=== PATIENT | male | born 1940 | race Caucasian/White ===

== ENCOUNTER 2016-11-12 20:27 | Emergency (ER) | payer MEDICARE, BC ==
[2016-11-12] MEDS ORDERED: Sodium Chloride 0.9% 10 ML Syringe FLUSH PRN (21:09)
[2016-11-12] MEDS ORDERED: Sodium Chloride 0.9% 1,000 ML IV SCH (22:15)
[2016-11-12] MEDS ORDERED: Iopamidol 755 Mg/ML 100 ML Bottle IV STA (22:24)
[2016-11-12] MEDS ORDERED: Sodium Chloride 0.9% 100 ML IV STA (22:24)
--- NOTE | 2016-11-12 22:25 | EDM.PDOC ---
ED HPI GENERAL MEDICAL PROBLEM - General Chief Complaint: Syncope Stated Complaint: MED[facility] Time Seen by Provider: 11/12/16 20:52 Source of Information: Reports: Patient, EMS, RN Notes Reviewed History Limitations: Reports: No Limitations - History of Present Illness INITIAL COMMENTS - FREE TEXT/NARRATIVE: EMS arrival, received ondansetron IV prior to arrival His of 57 years is here with him. 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 He came to on the floor, bystanders had M down to the floor easily, syncope recurred in the sitting position, he did not fall. He vomited after he came to several times on the floor in the ambience and on arrival here. Nausea is still present but mild. No abdominal pain, no chest pain, not short of breath. No leg pain or swelling recently No fever or infection recently. Recently diagnosed COPD started on steroid inhaler which he had to discontinue because he gave him such as sore throat. He has an emergency inhaler but rarely uses it, his reading ability has improved over the past few years and he can walk further than ever. He smoked from age 14 to age 62 about 9 years ago had a mini stroke presenting with numbness in the arm. He underwent a left carotid endarterectomy about 8 years ago. No history of heart attack or ischemia. he has wonder if it could be the influenza vaccination the receive this morning. In emergency continues to have some lightheadedness nausea when he was taken for x-ray but that is improved. No history of syncope previously. Long-standing history of PVCs. 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 Denies Pain Score (Numeric/FACES): 0 - Related Data Allergies Allergy/AdvReac Type Severity Reaction Status Date / Time codeine AdvReac Nausea Verified 11/12/16 20:31 Home Meds: Home Meds *Saw Flo 540 Mg 540 mg PO DAILY 09/04/13 [History] Aspirin [Adult Low Dose Aspirin EC] 81 mg PO DAILY 09/04/13 [History] Benazepril [Lotensin] 5 mg PO DAILY 09/04/13 [History] Gluc 2KCl/Chondr/Alta Hy/Hy Ac [Glucosamine & Chondroitin Cap] 1 each PO BID [History] Multivitamin [Multi Vitamin Daily] 1 each PO DAILY 09/04/13 [History] Simvastatin [Zocor] 40 mg PO BEDTIME 09/04/13 [History] amLODIPine Besylate [Amlodipine Besylate] 5 mg PO DAILY 09/04/13 [History] *Avastin Inj 1 dose IM ASDIRECTED 11/12/16 [History] Past Medical History HEENT History: Reports: Impaired Vision, Macular Degeneration Cardiovascular History: Reports: High Cholesterol, Hypertension Respiratory History: Reports: COPD Genitourinary History: Reports: Renal Calculus Musculoskeletal History: Reports: Fracture Other Musculoskeletal History: wrist arms leg fx Neurological History: Reports: CVA - Infectious Disease History Infectious Disease History: Reports: C-Difficile, Measles - Past Surgical History Other HEENT Surgeries/Procedures: sinus surgery Other Cardiovascular Surgeries/Procedures: stent for abdominal anurysym GI Surgical History: Reports: Colonoscopy Other GI Surgeries/Procedures: abdomenal anurysm Social & Family History - Tobacco Use Smoking Status *Q: Former Smoker Years of Tobacco use: 48 Packs/Tins Daily: 1 Used Tobacco, but Quit: Yes Month Tobacco Last Used: Unknown Second Hand Smoke Exposure: No - Caffeine Use Caffeine Use: Reports: Coffee, Soda - Alcohol Use Days Per Week of Alcohol Use: 7 Number of Drinks Per Day: 2 Total Drinks Per Week: 14 Date of Last Drink: 11/11/16 Time of Last Drink: 20:00 - Recreational Drug Use Recreational Drug Use: No ED ROS GENERAL - Review of Systems Review Of Systems: See Below Constitutional: Denies: Fever, Chills, Diaphoresis, Decreased Appetite, Weight Loss HEENT: Reports: No Symptoms Respiratory: Reports: No Symptoms Cardiovascular: Reports: Blood Pressure Problem (controlled hypertension), Syncope. Denies: Chest Pain, Dyspnea on Exertion, Palpitations (PVCs but not symptomatic) Endocrine: Reports: No Symptoms GI/Abdominal: Reports: No Symptoms : Reports: No Symptoms Musculoskeletal: Reports: No Symptoms Skin: Reports: No Symptoms Neurological: Reports: Dizziness (by which he means lightheadedness, not vertigo ), Syncope. Denies: Confusion, Headache, Paresthesia, Pre-Existing Deficit, Change in Speech, Gait Disturbance Psychiatric: Reports: No Symptoms Hematologic/Lymphatic: Reports: No Symptoms Immunologic: Reports: No Symptoms - Physical Exam Exam: See Below Exam Limited By: No Limitations General Appearance: Alert, No Apparent Distress, Other (blood pressure is elevated otherwise vital signs normal, no difficulty speaking or breathing) Eye Exam: Bilateral Eye: EOMI, Normal Inspection Ears: Normal External Exam Nose: Normal Inspection, Normal Mucosa Throat/Mouth: Normal Inspection, Normal Oropharynx Head Exam: Atraumatic, Normocephalic Neck: Normal Inspection, Supple, Non-Tender, Other (no carotid bruit) Respiratory/Chest: No Respiratory Distress, No Accessory Muscle Use, Rales ( both lung lala at the back) Cardiovascular: Normal Peripheral Pulses, Regular Rate, Rhythm, Extra Beats ( frequent PVCs) GI/Abdominal: Normal Bowel Sounds, Soft, Non-Tender (Male) Exam: No Hernia Neuro Exam (Abbreviated): Alert, Oriented, Normal Cognition, Normal Reflexes, No Motor/Sensory Deficits Extremities: Normal Inspection, Non-Tender, Normal Capillary Refill Psychiatric: Normal Affect, Normal Mood Skin Exam: Warm, Dry, Intact, Normal Color, No Rash Course - Vital Signs Last Recorded V/S: Last Vital Signs Temp 35.9 C 11/12/16 20:44 Pulse 90 11/12/16 22:28 Resp 16 11/12/16 20:44 BP 155/88 H 11/12/16 22:28 Pulse Ox 92 L 11/12/16 22:28 - Orders/Labs/Meds Orders: Active Orders 24 hr Category Date Time Status EKG Documentation Completion [RC] ASDIRECTED Care 11/12/16 21:09 Active EKG Documentation Completion [RC] ASDIRECTED Care 11/13/16 00:11 Active Peripheral IV Care [RC] . DIRECTED Care 11/12/16 21:09 Active Ang Chest [CT] Stat Exams 11/12/16 22:18 Taken Chest 2V [CR] Stat Exams 11/12/16 21:09 Taken Sodium Chloride 0.9% [Normal Saline] 1,000 ml Med 11/12/16 22:15 Active IV ASDIRECTED Sodium Chloride 0.9% [Saline Flush] Med 11/12/16 21:09 Active 10 ml FLUSH ASDIRECTED PRN Peripheral IV Insertion Adult [OM.PC] Routine Oth 11/12/16 21:09 Ordered EKG 12 Lead [EK] Routine Ther 11/12/16 21:09 Ordered EKG 12 Lead [EK] Routine Ther 11/13/16 00:11 Ordered Medication Orders Sodium Chloride (Normal Saline) 1,000 mls @ 250 mls/hr IV ASDIRECTED GWEN Last Admin: 11/12/16 23:11 Dose: 250 mls/hr Sodium Chloride (Saline Flush) 10 ml FLUSH ASDIRECTED PRN PRN Reason: Keep Vein Open Labs: Laboratory Tests 11/12/16 11/12/16 11/12/16 Range/Units 21:22 21:22 21:22 WBC 12.9 H (4.5-11.0) K/uL RBC 5.24 (4.30-5.90) M/uL Hgb 15.6 H (12.0-15.0) g/dL Hct 46.5 (40.0-54.0) % MCV 89 (80-98) fL MCH 30 (27-31) pg MCHC 34 (32-36) % Plt Count 187 (150-400) K/uL D-Dimer, Quantitative 4270 H (0.0-400.0) ng/mL Sodium 143 (140-148) mmol/L Potassium 3.5 L (3.6-5.2) mmol/L Chloride 106 (100-108) mmol/L Carbon Dioxide 26 (21-32) mmol/L Anion Gap 14.5 H (5.0-14.0) mmol/L BUN 19 H (7-18) mg/dL Creatinine 1.3 (0.8-1.3) mg/dL Est Cr Clr Drug Dosing 53.06 mL/min Estimated GFR (MDRD) 54 L (>60) Glucose 129 H (74-106) mg/dL Calcium 8.7 (8.5-10.1) mg/dL Troponin I 0.054 (0.000-0.056) ng/mL Meds: Medications Generic Name Dose Route Start Last Admin Trade Name Freq PRN Reason Stop Dose Admin Sodium Chloride 1,000 mls @ 250 mls/hr 11/12/16 22:15 11/12/16 23:11 Normal Saline IV 250 mls/hr ASDIRECTED GWEN Administration Sodium Chloride 10 ml 11/12/16 21:09 Saline Flush FLUSH ASDIRECTED PRN Keep Vein Open Discontinued Medications Generic Name Dose Route Start Last Admin Trade Name Freq PRN Reason Stop Dose Admin Sodium Chloride 100 mls @ 4 mls/sec 11/12/16 22:24 11/12/16 22:34 Normal Saline IV 11/12/16 22:25 4 mls/sec ASDIRECTED STA Administration Iopamidol 100 ml 11/12/16 22:24 11/12/16 22:34 [id number] (76%) IV 11/12/16 22:25 100 ml . DIRECTED STA Administration - Re-Assessments/Exams Free Text/Narrative Re-Assessment/Exam: 11/12/16 22:25 76-year-old male with syncope from a sitting position followed by several episodes of emesis, still feels lightheaded and has minimal nausea. EKG shows sinus rhythm rate 95 with frequent PVCs and some nonspecific ST changes, not suggestive of ischemia. Chest x-ray by my interpretation shows some scarring of the lung bases, probably reflective of COPD, no acute inflammation effusion or infiltrate WBC 12.9, d-dimer 4270 glucose 129 potassium 3.5,, no other significant abnormality In view of ongoing lightheadedness his nonspecific EKG changes and his syncope while sitting, recommended CT pulmonary angiogram 11/13/16 00:17 CT chest negative for pulmonary angiogram or any other acute disease Repeat EKG shows borderline prolonged QT, multiple PVCs, diffuse ST depression, minimal, borderline or abnormal EKG but no acute signs of ischemia Follow-up with primary provider or clinic in one week recommended Return to emergency if symptoms worsening Departure - Departure Time of Disposition: 00:17 Disposition: Home, Self-Care 01 Condition: Good Clinical Impression: Syncope Qualifiers: Syncope type: unspecified Qualified Code(s): R55 - Syncope and collapse - Discharge Information Instructions: Syncope, [id number] Referrals: PCP,None [Primary Care Provider] - Forms: ED Department Discharge Additional Instructions: please make an appointment with your physician/clinic for 1 week from now to recheck your blood pressure Return to emergency if you have recurrent episodes of passing out, developed chest pain or shortness of breath or high fever or other new symptoms - My Orders Last 24 Hours: My Active Orders 11/12/16 21:09 EKG Documentation Completion [RC] ASDIRECTED Peripheral IV Care [RC] . DIRECTED Chest 2V [CR] Stat Sodium Chloride 0.9% [Saline Flush] 10 ml FLUSH ASDIRECTED PRN Peripheral IV Insertion Adult [OM.PC] Routine EKG 12 Lead [EK] Routine 11/12/16 22:15 Sodium Chloride 0.9% [Normal Saline] 1,000 ml IV ASDIRECTED 11/12/16 22:18 Ang Chest [CT] Stat 11/13/16 00:11 EKG Documentation Completion [RC] ASDIRECTED EKG 12 Lead [EK] Routine - Assessment/Plan Last 24 Hours: My Active Orders 11/12/16 21:09 EKG Documentation Completion [RC] ASDIRECTED Peripheral IV Care [RC] . DIRECTED Chest 2V [CR] Stat Sodium Chloride 0.9% [Saline Flush] 10 ml FLUSH ASDIRECTED PRN Peripheral IV Insertion Adult [OM.PC] Routine EKG 12 Lead [EK] Routine 11/12/16 22:15 Sodium Chloride 0.9% [Normal Saline] 1,000 ml IV ASDIRECTED 11/12/16 22:18 Ang Chest [CT] Stat 11/13/16 00:11 EKG Documentation Completion [RC] ASDIRECTED EKG 12 Lead [EK] Routine
[2016-11-13 00:30] VITALS: BP 167/92
--- NOTE | 2016-11-13 08:57 | CR ---
Chest 2V HISTORY: syncope; lightheaded COMPARISON: 09/08/2008 FINDINGS: Lungs appear clear and normally aerated. There is minimal linear atelectasis or scarring left lung ba se. Cardiomediastinal silhouette is within normal limits. No vascular redistribution or pleural fluid can be seen. Bony structures and soft tissues are unremarkable. IMPRESSION: No acute chest abnormality or significant interval change is identified. Minimal linear scarring is n oted left lung base.
== END 2016-11-13 00:31 | disposition home or self-care (01) ==
LOC: JP.ED 20:27
DX: R55 Syncope and collapse (principal); I10 Essential (primary) hypertension; E78.00 Pure hypercholesterolemia, unspecified; J44.9 Chronic obstructive pulmonary disease, unspecified; Z87.442 Personal history of urinary calculi; Z86.73 Personal history of transient ischemic attack (TIA), and cerebral infarction without residual deficits; Z87.891 Personal history of nicotine dependence; Z98.890 Other specified postprocedural states; Z79.82 Long term (current) use of aspirin; Z79.899 Other long term (current) drug therapy; Z88.5 Allergy status to narcotic agent
CPT/HCPCS: 36415; 71020; 71275; 80048; 84484; 85027; 85379; 93005; 93010; 96360; 99284; J7030; J7040; Q9967; 99283

== ENCOUNTER 2017-02-19 14:07 | Emergency (ER) | payer MEDICARE, BC ==
[2017-02-19] MEDS ORDERED: Sodium Chloride 0.9% 10 ML Syringe FLUSH PRN (14:28)
[2017-02-19] MEDS ORDERED: Aspirin 81 MG Tab.Chew PO ONE (14:32)
--- NOTE | 2017-02-19 14:40 | EDM.PDOC ---
ED HPI GENERAL MEDICAL PROBLEM - General Chief Complaint: Chest Pain Stated Complaint: CHEST PAIN Time Seen by Provider: 02/19/17 14:25 Source of Information: Reports: Patient, Family History Limitations: Reports: No Limitations - History of Present Illness INITIAL COMMENTS - FREE TEXT/NARRATIVE: 76-year-old male with known coronary artery disease, had an angiogram and stent placement on 31 January the continues to have intermittent dyspnea and chest discomfort so is scheduled for a repeat angiogram on Friday, 5 days from now. He still has intermittent shortness of breath and chest pain responding to nitroglycerin, but this morning the pain was more intense, was at rest, and more persistent so he came into the emergency room. On arrival he is actually feeling better. The pain is substernal and does not radiate but is accompanied by shortness of breath. No nausea or vomiting, no abdominal pain, no significant diaphoresis. He thinks the nitroglycerin is helping. He took his Plavix as scheduled this morning, he usually takes aspirin at night. Duration: Hour(s): (Pain started 4-5 hours ago) Location: Reports: Chest Quality: Reports: Ache, Pressure Severity: Moderate Improves with: Reports: Medication (Nitroglycerin didn't seem to help) Anterior Chest Pain Score (Numeric/FACES): 3 - Related Data Allergies Allergy/AdvReac Type Severity Reaction Status Date / Time codeine AdvReac Nausea Verified 02/19/17 14:15 Home Meds: Home Meds *Paresh Rossi 540 Mg 540 mg PO DAILY 09/04/13 [History] Aspirin [Adult Low Dose Aspirin EC] 81 mg PO DAILY 09/04/13 [History] Benazepril [Lotensin] 5 mg PO DAILY 09/04/13 [History] Gluc 2KCl/Chondr/[place] Hy/Hy Ac [Glucosamine & Chondroitin Cap] 1 each PO DAILY 09/04/13 [History] Multivitamin [Multi Vitamin Daily] 1 each PO DAILY 09/04/13 [History] amLODIPine Besylate [Amlodipine Besylate] 5 mg PO DAILY 09/04/13 [History] *Avastin Inj 1 dose IM ASDIRECTED 11/12/16 [History] L.acidoph,Paracasei, B.lactis [Probiotic] 1 cap PO DAILY 12/10/16 [History] Carvedilol [Coreg] 6.25 mg PO BID 02/19/17 [History] Clopidogrel [Plavix] 75 mg PO DAILY 02/19/17 [History] atorvaSTATin [Lipitor] 80 mg PO BEDTIME 02/19/17 [History] Past Medical History HEENT History: Reports: Impaired Vision, Macular Degeneration Cardiovascular History: Reports: High Cholesterol, Hypertension Respiratory History: Reports: COPD Genitourinary History: Reports: Renal Calculus Musculoskeletal History: Reports: Fracture Other Musculoskeletal History: wrist arms leg fx Neurological History: Reports: CVA - Infectious Disease History Infectious Disease History: Reports: C-Difficile, Measles - Past Surgical History Other HEENT Surgeries/Procedures: sinus surgery Other Cardiovascular Surgeries/Procedures: stent for abdominal anurysym GI Surgical History: Reports: Colonoscopy Other GI Surgeries/Procedures: abdomenal anurysm Social & Family History - Tobacco Use Smoking Status *Q: Former Smoker Years of Tobacco use: 48 Packs/Tins Daily: 1 Used Tobacco, but Quit: Yes Month Tobacco Last Used: Unknown Second Hand Smoke Exposure: No - Caffeine Use Caffeine Use: Reports: Coffee, Soda - Alcohol Use Days Per Week of Alcohol Use: 7 Number of Drinks Per Day: 2 Total Drinks Per Week: 14 - Recreational Drug Use Recreational Drug Use: No ED ROS GENERAL - Review of Systems Review Of Systems: See Below Constitutional: Denies: Fever, Chills Respiratory: Reports: Shortness of Breath. Denies: Cough Cardiovascular: Reports: Chest Pain, Palpitations GI/Abdominal: Denies: Abdominal Pain, Nausea, Vomiting : Reports: No Symptoms Neurological: Denies: Headache ED EXAM, GENERAL - Physical Exam Exam: See Below Exam Limited By: No Limitations General Appearance: Alert, No Apparent Distress Eye Exam: Bilateral Eye: Normal Inspection Respiratory/Chest: No Respiratory Distress Cardiovascular: Regular Rate, Rhythm, Bradycardia, Extra Beats GI/Abdominal: Soft, Non-Tender Extremities: Pedal Edema (Minimal if any bilateral pedal edema) Neurological: Alert, Oriented Psychiatric: Normal Affect, Normal Mood Skin Exam: Warm, Dry EKG INTERPRETATION Rhythm: NSR Rate (Beats/Min): 58 ST-T: Other (Slight depression but stable from previous EKGs) EKG Interpretation Comments: Patient has a sinus bradycardia with frequent PVCs, occasionally paired. No significant ST depression or elevation Course - Vital Signs Last Recorded V/S: Last Vital Signs Temp 97.2 F 02/19/17 14:20 Pulse 64 02/19/17 15:30 Resp 16 02/19/17 15:30 BP 122/77 02/19/17 15:30 Pulse Ox 97 02/19/17 15:30 - Orders/Labs/Meds Labs: Laboratory Tests 02/19/17 02/19/17 Range/Units 14:40 14:40 WBC 8.3 (4.5-11.0) K/uL RBC 4.96 (4.30-5.90) M/uL Hgb 15.1 H (12.0-15.0) g/dL Hct 45.2 (40.0-54.0) % MCV 91 (80-98) fL MCH 30 (27-31) pg MCHC 33 (32-36) % Plt Count 164 (150-400) K/uL Neut % (Auto) 72 H (36-66) % Lymph % (Auto) 14 L (24-44) % [place] % (Auto) 10 H (2-6) % Eos % (Auto) 4 (2-4) % Baso % (Auto) 0 (0-1) % Sodium 144 (140-148) mmol/L Potassium 4.2 (3.6-5.2) mmol/L Chloride 107 (100-108) mmol/L Carbon Dioxide 30 (21-32) mmol/L Anion Gap 6.7 (5.0-14.0) mmol/L BUN 19 H (7-18) mg/dL Creatinine 1.4 H (0.8-1.3) mg/dL Est Cr Clr Drug Dosing 47.81 mL/min Estimated GFR (MDRD) 49 L (>60) Glucose 143 H (74-106) mg/dL Calcium 9.1 (8.5-10.1) mg/dL Troponin I 0.025 (0.000-0.056) ng/mL Meds: Medications Discontinued Medications Generic Name Dose Route Start Last Admin Trade Name Freq PRN Reason Stop Dose Admin Aspirin 324 mg 02/19/17 14:32 02/19/17 14:36 Aspirin PO 02/19/17 14:33 324 mg ONETIME ONE Administration Sodium Chloride 10 ml 02/19/17 14:28 02/19/17 14:43 Saline Flush FLUSH 10 ml ASDIRECTED PRN Administration Keep Vein Open - Re-Assessments/Exams Free Text/Narrative Re-Assessment/Exam: 02/19/17 14:39 An EKG showed no acute findings and was very similar to previous EKGs except the rate was slower, possibly due to beta kaleb therapy. Patient was given full dose chewable aspirin, CBC, BMP and troponin were obtained. 02/19/17 15:41 Troponin was negative, CBC and BMP were reassuring. I discussed his case with cardiology up in [place], his recent angiogram was reviewed and they did not feel there was any urgency to transport him up now unless his symptoms worsen. This was relayed to the patient and he will plan on keeping his appointment on Friday, or returning to [place] sooner if symptoms recur and are persistent or unresponsive to nitroglycerin. Departure - Departure Time of Disposition: 15:52 Disposition: Home, Self-Care 01 Condition: Good Clinical Impression: Atypical chest pain Coronary artery disease Qualifiers: Coronary Disease-Associated Artery/Lesion type: tang[place]q artery [place] vs. transplanted heart: tangir[place]q heart Associated angina: with unspecified angina Qualified Code(s): I25.119 - Atherosclerotic heart disease of tangirnaq coronary artery with unspecified angina pectoris - Discharge Information Instructions: Angina Pectoris, [id number] Referrals: Shayne Wheatley MD [Primary Care Provider] - Forms: ED Department Discharge Care Plan Goals: Continue with nitroglycerin as needed for any breakthrough chest pain, and consider going to [place] if symptoms are persistent or worsening despite treatment. Otherwise keep your appointment on Friday as scheduled.
[2017-02-19 15:48] VITALS: BP 122/77
== END 2017-02-19 15:52 | disposition home or self-care (01) ==
LOC: JP.ED 14:07
DX: I25.119 Atherosclerotic heart disease of native coronary artery with unspecified angina pectoris (principal); I10 Essential (primary) hypertension; E78.00 Pure hypercholesterolemia, unspecified; J44.9 Chronic obstructive pulmonary disease, unspecified; Z87.891 Personal history of nicotine dependence; Z79.02 Long term (current) use of antithrombotics/antiplatelets; Z79.82 Long term (current) use of aspirin; Z79.899 Other long term (current) drug therapy; Z88.5 Allergy status to narcotic agent
CPT/HCPCS: 36415; 80048; 84484; 85025; 93005; 99285; A9270; J7050; 93010

== ENCOUNTER 2017-04-08 09:24 | Emergency (ER) | payer MEDICARE, BC ==
[2017-04-08] MEDS ORDERED: Lactated Ringers 1,000 ML IV ONE (10:21)
[2017-04-08] MEDS ORDERED: Sodium Chloride 0.9% 10 ML Syringe FLUSH PRN (10:21)
--- NOTE | 2017-04-08 10:23 | EDM.PDOC ---
ED HPI GENERAL MEDICAL PROBLEM - General Chief Complaint: Gastrointestinal Problem Stated Complaint: BLACK STOOLS Time Seen by Provider: 04/08/17 10:05 Source of Information: Reports: Patient, Family, Old Records, RN Notes Reviewed History Limitations: Reports: No Limitations - History of Present Illness INITIAL COMMENTS - FREE TEXT/NARRATIVE: 77-year-old gentleman presents to the emergency department today complaint of black tarry stools, he states he's had 3 black tarry stools starting this morning prior to that he is had 2 weeks of diarrhea mostly brown half water half formed stool. Denies any shortness of breath chest pain nausea vomiting does feel weak, does have a history of AAA repair as well as coronary artery disease and multiple PVCs - Related Data Allergies Allergy/AdvReac Type Severity Reaction Status Date / Time codeine AdvReac Nausea Verified 02/19/17 14:15 Home Meds: Home Meds *Saw [place] 540 Mg 540 mg PO DAILY 09/04/13 [History] Aspirin [Adult Low Dose Aspirin EC] 81 mg PO DAILY 09/04/13 [History] Benazepril [Lotensin] 5 mg PO DAILY 09/04/13 [History] Gluc 2KCl/Chondr/Alta Hy/Hy Ac [Glucosamine & Chondroitin Cap] 1 each PO DAILY 09/04/13 [History] Multivitamin [Multi Vitamin Daily] 1 each PO DAILY 09/04/13 [History] amLODIPine Besylate [Amlodipine Besylate] 5 mg PO DAILY 09/04/13 [History] *Avastin Inj 1 dose IM ASDIRECTED 11/12/16 [History] L.acidoph,Paracasei, B.lactis [Probiotic] 1 cap PO DAILY 12/10/16 [History] Carvedilol [Coreg] 12.5 mg PO BID 02/19/17 [History] Clopidogrel [Plavix] 75 mg PO DAILY 02/19/17 [History] atorvaSTATin [Lipitor] 80 mg PO BEDTIME 02/19/17 [History] Past Medical History HEENT History: Reports: Impaired Vision, Macular Degeneration Cardiovascular History: Reports: Afib, Aneurysm, CAD, High Cholesterol, Hypertension Respiratory History: Reports: COPD Gastrointestinal History: Reports: Chronic Diarrhea Genitourinary History: Reports: Renal Calculus Musculoskeletal History: Reports: Fracture Other Musculoskeletal History: wrist arms leg fx Neurological History: Reports: CVA - Infectious Disease History Infectious Disease History: Reports: C-Difficile, Measles - Past Surgical History Other HEENT Surgeries/Procedures: sinus surgery Cardiovascular Surgical History: Reports: Coronary Artery Stent Other Cardiovascular Surgeries/Procedures: stent for abdominal anurysym GI Surgical History: Reports: Colonoscopy, Hernia Repair/Other Other GI Surgeries/Procedures: abdomenal anurysm Social & Family History - Tobacco Use Smoking Status *Q: Former Smoker Years of Tobacco use: 48 Packs/Tins Daily: 1 Used Tobacco, but Quit: Yes Month Tobacco Last Used: 2002 Second Hand Smoke Exposure: No - Caffeine Use Caffeine Use: Reports: None - Alcohol Use Days Per Week of Alcohol Use: 7 Number of Drinks Per Day: 2 Total Drinks Per Week: 14 - Recreational Drug Use Recreational Drug Use: No ED ROS GENERAL - Review of Systems Review Of Systems: See Below Constitutional: Reports: Weakness HEENT: Reports: No Symptoms Respiratory: Reports: No Symptoms Cardiovascular: Reports: No Symptoms GI/Abdominal: Reports: Black Stool, Diarrhea, Flatus. Denies: Nausea, Vomiting : Reports: No Symptoms Musculoskeletal: Reports: No Symptoms Skin: Reports: No Symptoms Neurological: Reports: No Symptoms ED EXAM, GI/ABD - Physical Exam Exam: See Below Text/Narrative:: General: Male, not in any distress, alert and oriented x3 HEENT: head is atraumatic normocephalic, eyes pupils equal round reactive to light, sclera clear no conjunctivitis appreciated. Ears tympanic membranes clear and gibbons landmarks and light reflex are present bilaterally canals are clear. Nose no septal deviation, nares are clear, no blood present. Mouth mucosa is moist and pink no erythema or exudate noted in soft palate, tongue is midline uvula is midline, dentition is intact. Neck: Supple no thyromegaly no tracheal deviation. Nodes: Cervical nodes subclavicular nodes nontender no palpable lymphadenopathy noted. Lungs: clear to auscultation bilaterally with symmetrical respirations, no adventitious noise appreciated. CV: Regular rate and rhythm S1 and S2 appreciated no murmurs rubs or gallops noted. Abdomen: Soft, nontender, no palpable masses or organomegaly appreciated, no distention no guarding bowel sounds are present, rectal exam reveals good sphincter tone no masses no fissures noted there is a small hemorrhoid approximately 6 o'clock position occult stool was obtained. Neuro: Cranial nerves II through XII grossly intact Skin: Warm and dry, intact Extremities: No lower extremity edema appreciated, Course - Vital Signs Last Recorded V/S: Last Vital Signs Temp 96.3 F 04/08/17 09:33 Pulse 47 L 04/08/17 09:33 Resp 16 04/08/17 09:33 BP 85/63 L 04/08/17 09:33 Pulse Ox 96 04/08/17 09:33 - Orders/Labs/Meds Orders: Active Orders 24 hr Category Date Time Status Peripheral IV Care [RC] . DIRECTED Care 04/08/17 10:21 Active Lactated Ringers [Ringers, Lactated] 1,000 ml Med 04/08/17 10:21 Active IV BOLUS Sodium Chloride 0.9% [Saline Flush] Med 04/08/17 10:21 Active 10 ml FLUSH ASDIRECTED PRN Peripheral IV Insertion Adult [OM.PC] Urgent Oth 04/08/17 10:20 Ordered Medication Orders Lactated Ringer's (Ringers, Lactated) 1,000 mls @ 500 mls/hr IV BOLUS ONE Stop: 04/08/17 12:20 Last Admin: 04/08/17 10:40 Dose: 500 mls/hr Sodium Chloride (Saline Flush) 10 ml FLUSH ASDIRECTED PRN PRN Reason: Keep Vein Open Last Admin: 04/08/17 10:49 Dose: 10 ml Labs: Laboratory Tests 04/08/17 04/08/17 Range/Units 10:31 10:31 WBC 9.2 (4.5-11.0) K/uL RBC 4.57 (4.30-5.90) M/uL Hgb 13.7 (12.0-15.0) g/dL Hct 41.9 (40.0-54.0) % MCV 92 (80-98) fL MCH 30 (27-31) pg MCHC 33 (32-36) % Plt Count 164 (150-400) K/uL Neut % (Auto) 82 H (36-66) % Lymph % (Auto) 9 L (24-44) % [place] % (Auto) 7 H (2-6) % Eos % (Auto) 2 (2-4) % Baso % (Auto) 0 (0-1) % Sodium 141 (140-148) mmol/L Potassium 4.2 (3.6-5.2) mmol/L Chloride 109 H (100-108) mmol/L Carbon Dioxide 23 (21-32) mmol/L Anion Gap 13.2 (5.0-14.0) mmol/L BUN 17 (7-18) mg/dL Creatinine 1.2 (0.8-1.3) mg/dL Est Cr Clr Drug Dosing 54.91 mL/min Estimated GFR (MDRD) 59 L (>60) Glucose 101 (74-106) mg/dL Calcium 8.6 (8.5-10.1) mg/dL Total Bilirubin 0.8 (0.2-1.0) mg/dL AST 20 (15-37) U/L ALT 38 (12-78) U/L Alkaline Phosphatase 100 (46-116) U/L Total Protein 6.0 L (6.4-8.2) g/dL Albumin 3.3 L (3.4-5.0) g/dL Globulin 2.7 (2.3-3.5) g/dL Albumin/Globulin Ratio 1.2 (1.2-2.2) Meds: Medications Generic Name Dose Route Start Last Admin Trade Name Freq PRN Reason Stop Dose Admin Lactated Ringer's 1,000 mls @ 500 mls/hr 04/08/17 10:21 04/08/17 10:40 Ringers, Lactated IV 04/08/17 12:20 500 mls/hr BOLUS ONE Administration Sodium Chloride 10 ml 04/08/17 10:21 04/08/17 10:49 Saline Flush FLUSH 10 ml ASDIRECTED PRN Administration Keep Vein Open Departure - Departure Time of Disposition: 11:46 Disposition: Home, Self-Care 01 Condition: Good Clinical Impression: Black stools - Discharge Information Referrals: Shayne Wheatley MD [Primary Care Provider] - Forms: ED Department Discharge Additional Instructions: Please report to outpatient surgery Friday morning for your surgical procedure, call return to the emergency department worsening of symptoms - My Orders Last 24 Hours: My Active Orders 04/08/17 10:20 Peripheral IV Insertion Adult [OM.PC] Urgent 04/08/17 10:21 Peripheral IV Care [RC] . DIRECTED Lactated Ringers [Ringers, Lactated] 1,000 ml IV BOLUS Sodium Chloride 0.9% [Saline Flush] 10 ml FLUSH ASDIRECTED PRN - Assessment/Plan Last 24 Hours: My Active Orders 04/08/17 10:20 Peripheral IV Insertion Adult [OM.PC] Urgent 04/08/17 10:21 Peripheral IV Care [RC] . DIRECTED Lactated Ringers [Ringers, Lactated] 1,000 ml IV BOLUS Sodium Chloride 0.9% [Saline Flush] 10 ml FLUSH ASDIRECTED PRN Plan: Assessment Acuity = acute Site and laterality = black tarry stools complicated patient with history of chronic obstructive pulmonary disease as well as coronary artery disease on combination Plavix and aspirin Etiology = unknown etiology Manifestations = none Location of injury = Home Lab values = hemoglobin stable at 13.7, CMP unremarkable, Hemoccult was negative Plan Called discussed case with Dr. Ramos general surgery recommended Protonix by mouth twice a day 10 days plan for upper GI as well as lower GI given his history of polyps, he will report to outpatient surgery on Friday This note was dictated using [employer] voice recognition software please call with any questions on syntax or sebastián.
[2017-04-08 12:39] VITALS: BP 145/65
== END 2017-04-08 12:43 | disposition home or self-care (01) ==
LOC: JP.ED 09:24
DX: R19.5 Other fecal abnormalities (principal); J44.9 Chronic obstructive pulmonary disease, unspecified; I25.10 Atherosclerotic heart disease of native coronary artery without angina pectoris; I10 Essential (primary) hypertension; I48.91 Unspecified atrial fibrillation; E78.00 Pure hypercholesterolemia, unspecified; Z79.82 Long term (current) use of aspirin; Z79.02 Long term (current) use of antithrombotics/antiplatelets; Z95.5 Presence of coronary angioplasty implant and graft; Z87.891 Personal history of nicotine dependence; Z79.899 Other long term (current) drug therapy; Z88.5 Allergy status to narcotic agent
CPT/HCPCS: 36415; 80053; 82272; 85025; 96360; 96361; 99285; J7050; J7120; 99284

== ENCOUNTER 2017-04-14 07:41 | Emergency (ER) | payer MEDICARE, BC ==
--- NOTE | 2017-04-14 08:15 | EDM.PDOC ---
ED HPI GENERAL MEDICAL PROBLEM - General Chief Complaint: Respiratory Problem Stated Complaint: SHORTNESS OF BREATH Time Seen by Provider: 04/14/17 07:55 Source of Information: Reports: Patient, EMS History Limitations: Reports: No Limitations - History of Present Illness INITIAL COMMENTS - FREE TEXT/NARRATIVE: 77-year-old male in line for a cardiology workup for a pacemaker because of recurring dyspnea due to cardiac arrhythmias. He woke up this morning again very short of breath, he took 2 nitroglycerin without relief. He also had a dull left-sided chest pressure which is typical with these events. He was recently hospitalized for a brief episode of dark stools, originally was scheduled for an EGD today but his laundry manager told him he needs to get his cardiac situation stabilized before any procedures. The dark stools resolved after 2 days. He received a DuoNeb in route, and EKG in the EMS confirmed numerous PVCs. On arrival he was feeling moderately better, pressure was gone and O2 sats were 96%. scientific director continued to show very frequent PVCs, at times bigeminy but no runs of V. tach were seen. Full dose aspirin was given by EMS. Onset: Unknown/Unsure Severity: Moderate Associated Symptoms: Reports: Chest Pain (Slight left-sided chest pressure), Shortness of Breath Treatments CAPONIZER: Reports: IV/IO, Nitroglycerin (2, no effect) Other Treatments CAPONIZER: ASA 325 MG AND ALBUTEROL NEB WITH SOME IMPROVEMENT OF SOB - Related Data Allergies Allergy/AdvReac Type Severity Reaction Status Date / Time codeine AdvReac Nausea Verified 04/14/17 08:03 Home Meds: Home Meds *Paresh Rossi 540 Mg 540 mg PO DAILY 09/04/13 [History] Aspirin [Adult Low Dose Aspirin EC] 81 mg PO DAILY 09/04/13 [History] Benazepril [Lotensin] 5 mg PO DAILY 09/04/13 [History] Gluc 2KCl/Chondr/Alta Hy/Hy Ac [Glucosamine & Chondroitin Cap] 1 each PO DAILY 09/04/13 [History] Multivitamin [Multi Vitamin Daily] 1 each PO DAILY 09/04/13 [History] amLODIPine Besylate [Amlodipine Besylate] 5 mg PO DAILY 09/04/13 [History] *Avastin Inj 1 dose IM ASDIRECTED 11/12/16 [History] L.acidoph,Paracasei, B.lactis [Probiotic] 1 cap PO DAILY 12/10/16 [History] Carvedilol [Coreg] 12.5 mg PO BID 02/19/17 [History] Clopidogrel [Plavix] 75 mg PO DAILY 02/19/17 [History] atorvaSTATin [Lipitor] 80 mg PO BEDTIME 02/19/17 [History] Past Medical History HEENT History: Reports: Impaired Vision, Macular Degeneration Cardiovascular History: Reports: Afib, Aneurysm, CAD, High Cholesterol, Hypertension Respiratory History: Reports: COPD Gastrointestinal History: Reports: Chronic Diarrhea Genitourinary History: Reports: Renal Calculus Musculoskeletal History: Reports: Fracture Other Musculoskeletal History: wrist arms leg fx Neurological History: Reports: CVA - Infectious Disease History Infectious Disease History: Reports: C-Difficile, Measles - Past Surgical History Other HEENT Surgeries/Procedures: sinus surgery Cardiovascular Surgical History: Reports: Coronary Artery Stent Other Cardiovascular Surgeries/Procedures: stent for abdominal anurysym GI Surgical History: Reports: Colonoscopy, Hernia Repair/Other Other GI Surgeries/Procedures: abdomenal anurysm Social & Family History - Tobacco Use Smoking Status *Q: Unknown Ever Smoked Years of Tobacco use: 48 Packs/Tins Daily: 1 Used Tobacco, but Quit: Yes Month Tobacco Last Used: 2002 Second Hand Smoke Exposure: No - Caffeine Use Caffeine Use: Reports: None - Alcohol Use Days Per Week of Alcohol Use: 7 Number of Drinks Per Day: 2 Total Drinks Per Week: 14 - Recreational Drug Use Recreational Drug Use: No ED ROS GENERAL - Review of Systems Review Of Systems: See Below Constitutional: Reports: Malaise. Denies: Fever, Chills HEENT: Reports: No Symptoms Respiratory: Reports: Shortness of Breath. Denies: Cough Cardiovascular: Reports: Chest Pain (Mild left-sided chest pressure), Palpitations GI/Abdominal: Reports: Other (Recent dark stools have resolved). Denies: Abdominal Pain, Nausea, Vomiting : Reports: No Symptoms Musculoskeletal: Reports: No Symptoms Neurological: Denies: Dizziness, Headache Psychiatric: Reports: No Symptoms ED EXAM, GENERAL - Physical Exam Exam: See Below Exam Limited By: No Limitations General Appearance: Alert, No Apparent Distress Eye Exam: Bilateral Eye: Normal Inspection Head: Atraumatic Respiratory/Chest: No Respiratory Distress, Wheezing (A few expiratory wheezes are heard diffusely) Cardiovascular: Irregularly Irregular (Numerous ectopic beats causes an irregular sounding rhythm) GI/Abdominal: Soft, Non-Tender Extremities: Pedal Edema (Patient does have a trace of lower extremity edema) Neurological: Alert, Oriented, No Motor/Sensory Deficits Psychiatric: Normal Affect, Normal Mood Skin Exam: Warm, Dry EKG INTERPRETATION EKG Interpretation Comments: No ST elevation or depression but numerous PVCs are mixed with an underlying sinus rhythm. Course - Vital Signs Last Recorded V/S: Last Vital Signs Temp 97.2 F 04/14/17 07:44 Pulse 60 04/14/17 07:44 Resp 16 04/14/17 07:44 BP 185/75 H 04/14/17 08:27 Pulse Ox 97 04/14/17 07:44 - Orders/Labs/Meds Orders: Active Orders 24 hr Category Date Time Status EKG Documentation Completion [RC] ASDIRECTED Care 04/14/17 07:56 Inactive EKG 12 Lead [EK] Routine Ther 04/14/17 07:56 Stop Req Labs: Laboratory Tests 04/14/17 04/14/17 Range/Units 08:06 08:06 WBC 10.3 (4.5-11.0) K/uL RBC 4.75 (4.30-5.90) M/uL Hgb 14.2 (12.0-15.0) g/dL Hct 43.6 (40.0-54.0) % MCV 92 (80-98) fL MCH 30 (27-31) pg MCHC 33 (32-36) % Plt Count 126 L (150-400) K/uL Neut % (Auto) 83 H (36-66) % Lymph % (Auto) 6 L (24-44) % Thomas % (Auto) 9 H (2-6) % Eos % (Auto) 2 (2-4) % Baso % (Auto) 0 (0-1) % Sodium 144 (140-148) mmol/L Potassium 4.1 (3.6-5.2) mmol/L Chloride 109 H (100-108) mmol/L Carbon Dioxide 25 (21-32) mmol/L Anion Gap 14.1 H (5.0-14.0) mmol/L BUN 15 (7-18) mg/dL Creatinine 1.5 H (0.8-1.3) mg/dL Est Cr Clr Drug Dosing 43.93 mL/min Estimated GFR (MDRD) 45 L (>60) Glucose 104 (74-106) mg/dL Calcium 8.9 (8.5-10.1) mg/dL Troponin I 0.060 H* (0.000-0.056) ng/mL Meds: Medications Discontinued Medications Generic Name Dose Route Start Last Admin Trade Name Jada PRN Reason Stop Dose Admin Carvedilol 12.5 mg 04/14/17 08:23 04/14/17 08:27 Coreg PO 04/14/17 08:24 12.5 mg ONETIME ONE Administration - Re-Assessments/Exams Free Text/Narrative Re-Assessment/Exam: 04/14/17 08:15 Because of the recent GI bleed, a CBC will be repeated as well as a BMP and troponin. I think this patient needs to go to [facility] to finish his cardiology evaluation and care. 04/14/17 08:40 Patient was given his 12.5 mg of oral Coreg she missed this morning. Blood pressure remained stable despite episodes of bigeminy where he was only perfusing 28-30 bpm. Respiratory rate and oxygenation also remained normal. 04/14/17 08:42 Hemoglobin returned reassuring at near 15. Troponin 0.06, creatinine 1.5 and GFR 45 which are similar to slightly worse than his usual baseline. I consulted the hospitalist service at [facility] and they are discussing his condition with cardiology. 04/14/17 08:59 [facility], Dr. Quintero, kindly agreed to accept the patient for further evaluation and treatment. If weather permits EMS transfer is to be arranged. Departure - Departure Time of Disposition: 09:26 Disposition: DC/Tfer to Other Condition: Fair Clinical Impression: Congestive heart failure Qualifiers: Heart failure type: systolic Heart failure chronicity: acute on chronic Qualified Code(s): I50.23 - Acute on chronic systolic (congestive) heart failure - Discharge Information Instructions: Shortness of Breath, Adult, [id number] Referrals: PCP,None [Primary Care Provider] - Forms: ED Department Discharge Care Plan Goals: Patient will be transported by EMS to [facility] for stabilization of arrhythmia and congestive heart failure, with possible intervention. - My Orders Last 24 Hours: My Active Orders 04/14/17 07:56 EKG Documentation Completion [RC] ASDIRECTED EKG 12 Lead [EK] Routine - Assessment/Plan Last 24 Hours: My Active Orders 04/14/17 07:56 EKG Documentation Completion [RC] ASDIRECTED EKG 12 Lead [EK] Routine
[2017-04-14] MEDS ORDERED: Carvedilol 12.5 MG Tab PO ONE (08:23)
[2017-04-14 08:27] VITALS: BP 185/75
--- NOTE | 2017-04-14 10:53 | CR ---
CHEST: AP portable CLINICAL HISTORY:Shortness of breath COMPARISON:CT chest 2017 FINDINGS: Pulmonary vascular areas cephalized. There is diffuse interstitial infiltrate most likely edema.. There may be a minimal left effusion.. IMPRESSION: Findings are most consistent with CHF and interstitial pulmonary edema. Diffuse pneumoni a is less likely
== END 2017-04-14 09:27 | disposition other institution (70) ==
LOC: JP.ED 07:41
DX: I11.0 Hypertensive heart disease with heart failure (principal); I50.23 Acute on chronic systolic (congestive) heart failure; E78.00 Pure hypercholesterolemia, unspecified; J44.9 Chronic obstructive pulmonary disease, unspecified; Z88.5 Allergy status to narcotic agent; Z79.82 Long term (current) use of aspirin; Z87.891 Personal history of nicotine dependence
CPT/HCPCS: 36415; 71045; 80048; 84484; 85025; 99285; A9270

== ENCOUNTER 2018-04-21 22:34 | Emergency (ER) | payer MEDICARE, BC ==
[2018-04-21 22:49] VITALS: BP 184/99
--- NOTE | 2018-04-21 23:17 | EDM.PDOC ---
ED HPI GENERAL MEDICAL PROBLEM - General Chief Complaint: Chest Pain Stated Complaint: HEART ISSUES Time Seen by Provider: 04/21/18 22:50 Source of Information: Reports: Patient, Family History Limitations: Reports: No Limitations - History of Present Illness INITIAL COMMENTS - FREE TEXT/NARRATIVE: 78-year-old male with a history of coronary artery disease and frequent PVCs has been doing well for the past year but tonight he developed some tingling in his left hand, and some tingling in his right arm and numbness on the top of his head. He then took a sublingual nitroglycerin and actually developed some mild left chest pain after the nitroglycerin but the numbness went away. He repeated the nitroglycerin and the chest pain then went away but then the numbness return. A third nitroglycerin took some of the numbness away, the pain came back for a few minutes and went away again. It did not hurt to breathe, did not have any diaphoresis or shortness of breath, no peripheral weakness, visual complaints, speech difficulties. Now in the emergency room he still has some slight numbness in his left hand, his only symptom at this time. Onset: Sudden Duration: Hour(s): (2-1/2 hours ago) Associated Symptoms: Reports: Chest Pain. Denies: Confusion, Cough, Diaphoresis , Fever/Chills, Loss of Appetite, Nausea/Vomiting, Shortness of Breath denies pain Pain Score (Numeric/FACES): 0 - Related Data Allergies Allergy/AdvReac Type Severity Reaction Status Date / Time codeine AdvReac Nausea Verified 04/21/18 22:43 betablockers Allergy Other Uncoded 04/21/18 22:43 Home Meds: Home Meds *Paresh Rossi 540 Mg 540 mg PO DAILY 09/04/13 [History] Aspirin [Adult Low Dose Aspirin EC] 81 mg PO DAILY 09/04/13 [History] Benazepril [Lotensin] 5 mg PO DAILY 09/04/13 [History] Gluc 2KCl/Chondr/Alta Hy/Hy Ac [Glucosamine & Chondroitin Cap] 1 each PO DAILY 09/04/13 [History] Multivitamin [Multi Vitamin Daily] 1 each PO DAILY 09/04/13 [History] amLODIPine Besylate [Amlodipine Besylate] 5 mg PO DAILY 09/04/13 [History] *Avastin Inj 1 dose IM ASDIRECTED 11/12/16 [History] Carvedilol [Coreg] 12.5 mg PO BID 02/19/17 [History] Clopidogrel [Plavix] 75 mg PO DAILY 02/19/17 [History] atorvaSTATin [Lipitor] 40 mg PO BEDTIME 02/19/17 [History] Furosemide [Lasix] 40 mg PO DAILY 04/21/18 [History] Past Medical History HEENT History: Reports: Impaired Vision, Macular Degeneration Cardiovascular History: Reports: Afib, Aneurysm, CAD, High Cholesterol, Hypertension Respiratory History: Reports: COPD Gastrointestinal History: Reports: Chronic Diarrhea Genitourinary History: Reports: Renal Calculus Musculoskeletal History: Reports: Fracture Other Musculoskeletal History: wrist arms leg fx Neurological History: Reports: CVA - Infectious Disease History Infectious Disease History: Reports: C-Difficile, Measles - Past Surgical History Other HEENT Surgeries/Procedures: sinus surgery Cardiovascular Surgical History: Reports: Coronary Artery Stent Other Cardiovascular Surgeries/Procedures: stent for abdominal anurysym GI Surgical History: Reports: Colonoscopy, Hernia Repair/Other Other GI Surgeries/Procedures: abdomenal anurysm Social & Family History - Caffeine Use Caffeine Use: Reports: None ED ROS GENERAL - Review of Systems Review Of Systems: See Below Constitutional: Denies: Fever, Chills Respiratory: Denies: Shortness of Breath Cardiovascular: Reports: Chest Pain GI/Abdominal: Denies: Abdominal Pain, Nausea, Vomiting Skin: Reports: No Symptoms Neurological: Reports: Paresthesia (Paresthesias of the left hand, right arm and scalp) Psychiatric: Reports: Anxiety (Patient was very anxious initially) ED EXAM, GENERAL - Physical Exam Exam: See Below Exam Limited By: No Limitations General Appearance: Alert, No Apparent Distress Eye Exam: Bilateral Eye: EOMI Head: Atraumatic Neck: Normal Inspection, Supple, Non-Tender Respiratory/Chest: No Respiratory Distress, Lungs Clear Cardiovascular: Regular Rate, Rhythm, Extra Beats (Frequent extra beats, underlying regular rhythm) GI/Abdominal: Soft, Non-Tender Extremities: Other ( slight sensation deficit of the left ring and small finger) Neurological: Alert, Oriented, No Motor/Sensory Deficits (No extremity weakness) Skin Exam: Warm, Dry EKG INTERPRETATION Rhythm: NSR EKG Interpretation Comments: Normal sinus rhythm with very frequent PVCs Course - Vital Signs Last Recorded V/S: Last Vital Signs Temp 97.2 F 04/21/18 22:49 Pulse 97 04/21/18 22:49 Resp 12 04/21/18 22:49 BP 184/99 H 04/21/18 22:49 Pulse Ox 98 04/21/18 22:49 - Orders/Labs/Meds Orders: Active Orders 24 hr Category Date Time Status EKG Documentation Completion [RC] ASDIRECTED Care 04/21/18 23:05 Active EKG 12 Lead [EK] Routine Ther 04/21/18 23:05 Ordered Labs: Laboratory Tests 04/21/18 04/21/18 04/22/18 Range/Units 23:15 23:15 01:05 WBC 11.0 (4.5-11.0) K/uL RBC 4.83 (4.30-5.90) M/uL Hgb 14.9 (12.0-15.0) g/dL Hct 44.6 (40.0-54.0) % MCV 92 (80-98) fL MCH 31 (27-31) pg MCHC 33 (32-36) % Plt Count 157 (150-400) K/uL Neut % (Auto) 81 H (36-66) % Lymph % (Auto) 9 L (24-44) % Teller % (Auto) 9 H (2-6) % Eos % (Auto) 1 L (2-4) % Baso % (Auto) 0 (0-1) % Sodium 140 (140-148) mmol/L Potassium 3.4 L (3.6-5.2) mmol/L Chloride 104 (100-108) mmol/L Carbon Dioxide 26 (21-32) mmol/L Anion Gap 13.4 (5.0-14.0) mmol/L BUN 27 H D (7-18) mg/dL Creatinine 1.2 (0.8-1.3) mg/dL Est Cr Clr Drug Dosing 54.03 mL/min Estimated GFR (MDRD) 59 L (>60) Glucose 102 (74-106) mg/dL Calcium 9.0 (8.5-10.1) mg/dL Troponin I 0.043 0.048 (0.000-0.056) ng/mL Meds: Medications Discontinued Medications Generic Name Dose Route Start Last Admin Trade Name Freq PRN Reason Stop Dose Admin Diltiazem HCl 30 mg 04/21/18 23:46 04/22/18 00:02 Cardizem PO 04/21/18 23:47 30 mg ONETIME ONE Administration - Re-Assessments/Exams Free Text/Narrative Re-Assessment/Exam: 04/21/18 23:27 EKG was obtained that showed normal sinus rhythm but frequent PVCs. His evening medications were looked up on the clinic records. CBC BMP and troponin drawn. 04/21/18 23:47 Initial blood tests return reassuring, he continued to have very frequent PVCs and mild elevated blood pressure so 30 mg of immediate release diltiazem was given orally, with the intention of redrawing a troponin in 2 hours. 04/22/18 01:20 Within one half hour of the oral diltiazem, he had markedly less PVCs and all symptoms had resolved. The repeat troponin was drawn. 04/22/18 01:33 Repeat troponin is basically unchanged. Patient was discharged and he'll discuss any medication changes with his primary provider. He may need some adjustments to decrease his PVCs. Departure - Departure Time of Disposition: 01:56 Disposition: Home, Self-Care 01 Condition: Good Clinical Impression: Atypical chest pain, Dizziness, PVCs (premature ventricular contractions) - Discharge Information Instructions: Premature Ventricular Contraction Referrals: Shayne Wheatley MD [Primary Care Provider] - Forms: ED Department Discharge Care Plan Goals: Continue your current medications, but discuss possible changes with your regular doctor that may help you decrease the number of PVCs you are having. - My Orders Last 24 Hours: My Active Orders 04/21/18 23:05 EKG Documentation Completion [RC] ASDIRECTED EKG 12 Lead [EK] Routine - Assessment/Plan Last 24 Hours: My Active Orders 04/21/18 23:05 EKG Documentation Completion [RC] ASDIRECTED EKG 12 Lead [EK] Routine
[2018-04-21] MEDS ORDERED: Diltiazem IR 30 MG Tab PO ONE (23:46)
== END 2018-04-22 01:53 | disposition home or self-care (01) ==
LOC: JP.ED 22:34
DX: I49.3 Ventricular premature depolarization (principal); R07.89 Other chest pain; I48.91 Unspecified atrial fibrillation; I25.10 Atherosclerotic heart disease of native coronary artery without angina pectoris; E78.00 Pure hypercholesterolemia, unspecified; I10 Essential (primary) hypertension; J44.9 Chronic obstructive pulmonary disease, unspecified; Z88.5 Allergy status to narcotic agent; Z88.8 Allergy status to other drugs, medicaments and biological substances; Z79.82 Long term (current) use of aspirin; Z79.899 Other long term (current) drug therapy
CPT/HCPCS: 36415; 80048; 84484; 85025; 93005; 99285; A9270

== ENCOUNTER 2018-05-16 19:34 | Emergency (ER) | payer MEDICARE, BC ==
[2018-05-16 19:49] VITALS: BP 186/100
--- NOTE | 2018-05-16 20:17 | EDM.PDOC ---
ED HPI GENERAL MEDICAL PROBLEM - General Chief Complaint: Lower Extremity Injury/Pain Stated Complaint: FALL, HURT HIP Time Seen by Provider: 05/16/18 19:45 Source of Information: Reports: Patient, Family History Limitations: Reports: No Limitations - History of Present Illness INITIAL COMMENTS - FREE TEXT/NARRATIVE: 78-year-old male stumbled and fell on his left hip earlier today, not much difficulty for the first few hours but over the last couple hours he he has developed significant lateral hip swelling and pain with some bruising. He is on Plavix. Onset: Gradual Duration: Hour(s): (Over the past 7 hours) Location: Reports: Lower Extremity, Left left hip Pain Score (Numeric/FACES): 5 - Related Data Allergies Allergy/AdvReac Type Severity Reaction Status Date / Time codeine AdvReac Nausea Verified 05/16/18 19:53 betablockers Allergy Other Uncoded 05/16/18 19:53 Home Meds: Home Meds *Saw Cascade 540 Mg 540 mg PO DAILY 09/04/13 [History] Aspirin [Adult Low Dose Aspirin EC] 81 mg PO DAILY 09/04/13 [History] Benazepril [Lotensin] 5 mg PO DAILY 09/04/13 [History] Gluc 2KCl/Chondr/Alta Hy/Hy Ac [Glucosamine & Chondroitin Cap] 1 each PO DAILY 09/04/13 [History] Multivitamin [Multi Vitamin Daily] 1 each PO DAILY 09/04/13 [History] amLODIPine Besylate [Amlodipine Besylate] 5 mg PO DAILY 09/04/13 [History] *Avastin Inj 1 dose IM ASDIRECTED 11/12/16 [History] Carvedilol [Coreg] 12.5 mg PO BID 02/19/17 [History] Clopidogrel [Plavix] 75 mg PO DAILY 02/19/17 [History] atorvaSTATin [Lipitor] 40 mg PO BEDTIME 02/19/17 [History] Furosemide [Lasix] 40 mg PO DAILY 04/21/18 [History] Past Medical History HEENT History: Reports: Impaired Vision, Macular Degeneration Cardiovascular History: Reports: Afib, Aneurysm, CAD, High Cholesterol, Hypertension Other Cardiovascular History: implanted heart monitor Respiratory History: Reports: COPD Gastrointestinal History: Reports: Chronic Diarrhea Genitourinary History: Reports: Renal Calculus Musculoskeletal History: Reports: Fracture Other Musculoskeletal History: wrist arms leg fx Neurological History: Reports: CVA - Infectious Disease History Infectious Disease History: Reports: C-Difficile, Measles - Past Surgical History HEENT Surgical History: Reports: Other (See Below) Other HEENT Surgeries/Procedures: sinus surgery Cardiovascular Surgical History: Reports: Coronary Artery Stent Other Cardiovascular Surgeries/Procedures: stent for abdominal anurysym GI Surgical History: Reports: Colonoscopy, Hernia Repair/Other Other GI Surgeries/Procedures: abdomenal anurysm Social & Family History - Tobacco Use Smoking Status *Q: Never Smoker - Caffeine Use Caffeine Use: Reports: None - Recreational Drug Use Recreational Drug Use: No Review of Systems - Review of Systems Review Of Systems: See Below Constitutional: Denies: Fever Mouth/Throat: Reports: No Symptoms Respiratory: Reports: No Symptoms Cardiovascular: Reports: No Symptoms GI/Abdominal: Reports: No Symptoms Skin: Reports: Bruising (Some bruising starting over the lateral hip) Neurological: Denies: Paresthesia ED EXAM, GENERAL - Physical Exam Exam: See Below Exam Limited By: No Limitations General Appearance: Alert, No Apparent Distress (No significant pain while lying still) Respiratory/Chest: No Respiratory Distress, Lungs Clear Cardiovascular: Regular Rate, Rhythm Extremities: Other (Exam is otherwise limited to the pelvis. He has good range of motion of the hips passively, but has pain with internal and external rotation of the left hip due to to significant hematoma formed over the lateral hip) Course - Vital Signs Last Recorded V/S: Last Vital Signs Temp 94.9 F L 05/16/18 19:53 Pulse 54 L 05/16/18 19:53 Resp 16 05/16/18 19:53 BP 186/100 H 05/16/18 19:53 Pulse Ox 96 05/16/18 19:53 - Re-Assessments/Exams Free Text/Narrative Re-Assessment/Exam: 05/16/18 20:16 No findings to indicate a fracture, x-rays not needed. Patient will be rechecked by surgery tomorrow morning at 8:00 Departure - Departure Time of Disposition: 20:33 Disposition: Home, Self-Care 01 Condition: Good Clinical Impression: Hematoma of left hip Qualifiers: Encounter type: initial encounter Qualified Code(s): S70.02XA - Contusion of left hip, initial encounter - Discharge Information Instructions: Hematoma, [id number] Referrals: Shayne Wheatley MD [Primary Care Provider] - Forms: ED Department Discharge Care Plan Goals: Return tomorrow to register at 7:30 to 7:45 to be seen by Dr. Wagoner for a surgical opinion. Use pain medication as prescribed.
== END 2018-05-16 20:33 | disposition home or self-care (01) ==
LOC: JP.ED 19:34
DX: S70.02XA Contusion of left hip, initial encounter (principal); I48.91 Unspecified atrial fibrillation; I25.10 Atherosclerotic heart disease of native coronary artery without angina pectoris; E78.00 Pure hypercholesterolemia, unspecified; I10 Essential (primary) hypertension; J44.9 Chronic obstructive pulmonary disease, unspecified; Z95.5 Presence of coronary angioplasty implant and graft; Z88.5 Allergy status to narcotic agent; Z79.82 Long term (current) use of aspirin; Z79.899 Other long term (current) drug therapy; W01.0XXA Fall on same level from slipping, tripping and stumbling without subsequent striking against object, initial encounter
CPT/HCPCS: 99283

== ENCOUNTER → 2018-06-24 | Outpatient (CLI) | payer MEDICARE, BC ==
[~2018-06-24] MED LIST: Bupivacaine 0.5% 30 ML SDV ONE
[2018-06-24 12:26] VITALS: BP 139/97; PULSE 68
--- NOTE | 2018-06-24 18:48 | ANES ---
DATE OF SERVICE: 06/24/2018 INDICATION: Mr. Odom is a 78-year-old male patient, referred to the Pain [facility] to us by Dr. Wheatley. He is here today for his trigger points. Please see the orders for the patient's preprocedure diagnosis as well as ICD-10 code. The risks and benefits of the procedure were explained to the patient. He wished to proceed with trigger points. TECHNIQUE: I did find 19 noticeable lumbosacral trigger points. I injected each of these with 1 to 2 mL of 0.5% Sensorcaine. I did inject more than 3 muscle groups. He tolerated the procedure very nicely. His vital signs remained stable throughout the procedure and nurse was with me for the entire time. There were no anesthesia complications noted. He is going to return in 2 weeks for trigger point injections. He was discharged from the [facility] per protocol. Enzo Portillo CRNA /[id number]
== END | disposition home or self-care (01) ==
LOC: JP.PAIN 11:44
PROVIDERS: ATTEND Internal Medicine
DX: M60.9 Myositis, unspecified (principal)
CPT/HCPCS: 20553; J3490

== ENCOUNTER 2018-07-29 09:55 | Outpatient (CLI) | payer MEDICARE, BC ==
[2018-07-29 10:40] VITALS: BP 148/71; PULSE 68
--- NOTE | 2018-07-29 18:04 | ANES ---
DATE OF SERVICE: 07/29/2018 INDICATION: Ed is a 78-year-old male patient referred to us by Dr. Wheatley for trigger point injections. He has had them several times in the past, is well aware of the risks and benefits, and wishes to proceed with trigger point injections. Please refer to the doctor's notes for ICD-10 code and diagnosis. TECHNIQUE: The patient was then sat at the edge of the bed. He was wanting me to focus on his lower back lumbar region. Alcohol was used to clean that area. I was able to easily identify approximately 10 to 11 trigger points. 2 to 4 mL of 0.5% Sensorcaine were injected in each one of those spots. More than 3 muscle groups were injected today. The patient tolerated the procedure without difficulty. Please refer to the nurse's notes for vital signs. After the appropriate amount of time, the patient will be discharged per [facility] protocol. José Luis Greer CRNA /[id number]
== END 2018-07-29 10:43 | disposition home or self-care (01) ==
LOC: JP.PAIN 09:55
PROVIDERS: ATTEND Internal Medicine
DX: M60.9 Myositis, unspecified (principal); M53.87 Other specified dorsopathies, lumbosacral region
CPT/HCPCS: 20553; J3490

== ENCOUNTER 2019-06-29 11:09 | Emergency (ER) | payer MEDICARE, BC ==
[2019-06-29 11:15] VITALS: BP 170/75; PULSE 74
--- NOTE | 2019-06-29 12:01 | EDM.PDOC ---
ED HPI GENERAL MEDICAL PROBLEM - General Chief Complaint: Cardiovascular Problem Stated Complaint: SOB, FEELING FAINT Time Seen by Provider: 06/29/19 11:25 Source of Information: Reports: Patient History Limitations: Reports: No Limitations - History of Present Illness INITIAL COMMENTS - FREE TEXT/NARRATIVE: 79-year-old male who was in the store earlier this morning when he felt somewhat short of breath and lightheaded. It lasted about 1/2-hour and then improved, he then drove to a second store and while he was in that store it happened a second time lasting 15 to 20 minutes and he became diaphoretic and dizzy. He never had pain. He never had palpitations. He does have an event monitor, and was told last week that he had a stretch of tachycardia and his Plavix was changed to Eliquis but he did not have symptoms. He did have an ID in the past and needed resuscitation and his symptoms were similar to what he experienced this morning so he wanted to get checked out. His initial symptoms started 4 hours ago, now that he is here he feels fine. His monitor shows normal sinus rhythm, EKG shows no acute findings. He does have occasional PVCs. Onset: Sudden Duration: Hour(s): (Initial shortness of breath and dizziness started just over 4 hours ago) Location: Reports: Generalized - Related Data Allergies Allergy/AdvReac Type Severity Reaction Status Date / Time Beta-Blockers Allergy Other Verified 01/27/19 11:07 (Beta-Adrenergic Bloc codeine AdvReac Nausea Verified 01/27/19 11:07 Home Meds: Home Meds *Paresh Rossi 540 Mg 540 mg PO DAILY 09/04/13 [History] Aspirin [Adult Low Dose Aspirin EC] 81 mg PO DAILY 09/04/13 [History] Benazepril [Lotensin] 10 mg PO DAILY 09/04/13 [History] Glucosam/Chondr/Collagn/Hyalur [Glucosamine & Chondroitin Cap] 1 each PO DAILY 09/04/13 [History] Multivitamin [Multi Vitamin Daily] 1 each PO DAILY 09/04/13 [History] Clopidogrel [Plavix] 75 mg PO DAILY 02/19/17 [History] Diltiazem [Cardizem CD] 120 mg PO DAILY 06/29/19 [History] Fluticasone Propionate [Flonase] 2 spray INH ASDIRECTED 06/29/19 [History] Furosemide [Lasix] 40 mg PO DAILY 06/29/19 [History] Isosorbide Mononitrate [Imdur] 30 mg PO DAILY 06/29/19 [History] Rosuvastatin [Crestor] 5 mg PO DAILY 06/29/19 [History] Umeclidinium Brm/Vilanterol Tr [Anoro Ellipta 62.5-25 MCG] 1 puff INH DAILY [History] hydrALAZINE [Apresoline] 10 mg PO TID 06/29/19 [History] Past Medical History HEENT History: Reports: Impaired Vision, Macular Degeneration Cardiovascular History: Reports: Afib, Aneurysm, CAD, High Cholesterol, Hypertension Other Cardiovascular History: implanted heart monitor Respiratory History: Reports: COPD Gastrointestinal History: Reports: Chronic Diarrhea Genitourinary History: Reports: Renal Calculus Musculoskeletal History: Reports: Fracture Other Musculoskeletal History: wrist arms leg fx Neurological History: Reports: CVA - Infectious Disease History Infectious Disease History: Reports: C-Difficile, Measles - Past Surgical History HEENT Surgical History: Reports: Other (See Below) Other HEENT Surgeries/Procedures: sinus surgery Cardiovascular Surgical History: Reports: Coronary Artery Stent Other Cardiovascular Surgeries/Procedures: stent for abdominal anurysym GI Surgical History: Reports: Colonoscopy, Hernia Repair/Other Other GI Surgeries/Procedures: abdomenal anurysm Social & Family History - Tobacco Use Smoking Status *Q: Never Smoker - Caffeine Use Caffeine Use: Reports: Coffee - Recreational Drug Use Recreational Drug Use: No ED ROS GENERAL - Review of Systems Review Of Systems: See Below Constitutional: Reports: Diaphoresis. Denies: Fever, Chills HEENT: Denies: Vision Change Respiratory: Reports: Shortness of Breath. Denies: Wheezing, Cough, Sputum Cardiovascular: Reports: Lightheadedness. Denies: Chest Pain, Palpitations GI/Abdominal: Denies: Abdominal Pain, Nausea, Vomiting : Reports: No Symptoms Skin: Reports: Diaphoresis Neurological: Reports: Dizziness. Denies: Headache Psychiatric: Reports: No Symptoms ED EXAM, GENERAL - Physical Exam Exam: See Below Exam Limited By: No Limitations General Appearance: Alert, No Apparent Distress Eye Exam: Bilateral Eye: Normal Inspection Head: Atraumatic Neck: Non-Tender Respiratory/Chest: No Respiratory Distress, Lungs Clear Cardiovascular: Regular Rate, Rhythm, Extra Beats (Occasional extra beats heard are PVCs on the monitor) GI/Abdominal: Soft, Non-Tender Extremities: Normal Inspection. No: Pedal Edema Neurological: Alert, Oriented Psychiatric: Normal Affect, Normal Mood Skin Exam: Warm, Dry EKG INTERPRETATION Rhythm: NSR Course - Vital Signs Last Recorded V/S: Last Vital Signs Temp 97 F 06/29/19 11:19 Pulse 74 06/29/19 11:19 Resp 12 06/29/19 11:19 BP 170/75 H 06/29/19 11:19 Pulse Ox 97 06/29/19 11:19 - Orders/Labs/Meds Orders: Active Orders 24 hr Category Date Time Status EKG Documentation Completion [RC] ASDIRECTED Care 06/29/19 11:27 Active EKG 12 Lead [EK] Routine Ther 06/29/19 11:27 Ordered Labs: Laboratory Tests 06/29/19 06/29/19 Range/Units 11:41 11:41 WBC 7.3 (4.5-11.0) K/uL RBC 4.83 (4.30-5.90) M/uL Hgb 14.3 (12.0-15.0) g/dL Hct 44.3 (40.0-54.0) % MCV 92 (80-98) fL MCH 30 (27-31) pg MCHC 32 (32-36) % Plt Count 174 (150-400) K/uL Neut % (Auto) 76 H (36-66) % Lymph % (Auto) 13 L (24-44) % Bullitt % (Auto) 9 H (2-6) % Eos % (Auto) 2 (2-4) % Baso % (Auto) 0 (0-1) % Sodium 140 (140-148) mmol/L Potassium 4.1 (3.6-5.2) mmol/L Chloride 104 (100-108) mmol/L Carbon Dioxide 28 (21-32) mmol/L Anion Gap 8.4 (5.0-14.0) mmol/L BUN 17 (7-18) mg/dL Creatinine 1.4 H (0.8-1.3) mg/dL Est Cr Clr Drug Dosing 45.57 mL/min Estimated GFR (MDRD) 49 L (>60) Glucose 93 (74-106) mg/dL Calcium 8.9 (8.5-10.1) mg/dL Troponin I < 0.017 (0.000-0.056) ng/mL - Re-Assessments/Exams Free Text/Narrative Re-Assessment/Exam: 06/29/19 12:01 Patient was kept on cardiac monitoring, CBC BMP and troponin were obtained. 06/29/19 12:16 Patient rested quietly while in the emergency room, labs were reassuring and troponin was 0. He has an appointment with his business banking representative tomorrow, copies of all the labs and EKG were given to the patient to take with. He can return anytime if symptoms recur. Departure - Departure Time of Disposition: 12:21 Disposition: Home, Self-Care 01 Clinical Impression: Dyspnea on exertion, Syncope, near Instructions: Near-Syncope, [id number] Referrals: PCP,None [Primary Care Provider] - Forms: ED Department Discharge Care Plan Goals: Stay hydrated, continue your regular medications and increase activity as tolerated. Recheck tomorrow as scheduled or return anytime if worsening. Sepsis Event Note - Evaluation Sepsis Screening Result: No Definite Risk - Focused Exam Vital Signs: Vital Signs Temp Pulse Resp BP Pulse Ox 06/29/19 11:19 97 F 74 12 170/75 H 97 06/29/19 11:14 97 F 74 12 170/75 H 97 Date Exam was Performed: 06/29/19 Time Exam was Performed: 14:01 - My Orders Last 24 Hours: My Active Orders 06/29/19 11:27 EKG Documentation Completion [RC] ASDIRECTED EKG 12 Lead [EK] Routine - Assessment/Plan Last 24 Hours: My Active Orders 06/29/19 11:27 EKG Documentation Completion [RC] ASDIRECTED EKG 12 Lead [EK] Routine
== END 2019-06-29 12:21 | disposition home or self-care (01) ==
LOC: JP.ED 11:09
DX: R55 Syncope and collapse (principal); R06.00 Dyspnea, unspecified; I10 Essential (primary) hypertension; E78.00 Pure hypercholesterolemia, unspecified; I48.91 Unspecified atrial fibrillation; I25.10 Atherosclerotic heart disease of native coronary artery without angina pectoris; Z86.73 Personal history of transient ischemic attack (TIA), and cerebral infarction without residual deficits; Z95.5 Presence of coronary angioplasty implant and graft; Z88.5 Allergy status to narcotic agent; Z88.8 Allergy status to other drugs, medicaments and biological substances; Z79.82 Long term (current) use of aspirin; Z79.02 Long term (current) use of antithrombotics/antiplatelets; Z79.899 Other long term (current) drug therapy
CPT/HCPCS: 36415; 80048; 84484; 85025; 93005; 93010; 99283; 99285-25

== ENCOUNTER 2019-09-13 06:38 | Day surgery (SDC) | payer MEDICARE, BC ==
[2019-09-13] MEDS ORDERED: Sodium Chloride 0.9% 1,000 ML IV SCH (07:00)
[2019-09-13] MEDS ORDERED: fentaNYL 100 MCG/2 ML SDV ONE (07:17)
[2019-09-13] MEDS ORDERED: Propofol 200 MG/20 ML SDV ONE (07:17)
[2019-09-13] MEDS ORDERED: Midazolam 1 MG/ML 2 ML SDV ONE (07:17)
[2019-09-13 09:04] VITALS: BP 131/83; PULSE 70
--- NOTE | 2019-09-13 11:53 | OR ---
DATE OF PROCEDURE: 09/13/2019 SURGEON: Abhinav Herrera MD PROCEDURE: Colonoscopy. FINDINGS: 1. Transverse colon polyp, approximately 5 mm, completely removed using cold biopsy forceps. 2. Transverse colon polyp, approximately 1 cm, sessile, completely removed using hot snare wire device. COMPLICATIONS: None. ASSISTANT CASE MANAGER: None. ANESTHESIA: MAC. RISKS: Risks, benefits, alternatives, and limitations including, but not limited to, infection, bleeding, and perforation were explained to the patient who wished to proceed. PROCEDURE IN DETAIL: The patient was placed in left lateral decubitus position. The colonoscope was introduced and advanced atraumatically to the ileocecal valve. A photo was taken of this. Scope was brought back to the ascending, transverse, descending colon, and retroflexed. The aforementioned polyps were identified and completely removed. No diverticulosis. No old or new blood. No masses. No other polyps. No abnormalities on retroflexion. The patient tolerated the procedure well. Abhinav Herrera MD /[id number]
== END 2019-09-13 09:25 | disposition home or self-care (01) ==
LOC: JP.SDS 06:38
PROVIDERS: ATTEND Surgery
DX: Z12.11 Encounter for screening for malignant neoplasm of colon (principal); D12.3 Benign neoplasm of transverse colon; I10 Essential (primary) hypertension; I25.10 Atherosclerotic heart disease of native coronary artery without angina pectoris
CPT/HCPCS: 45380; 45385; J2250; J2704; J3010; J7030; 88305

== ENCOUNTER 2020-03-06 08:07 | Emergency (ER) | payer MEDICARE, BC ==
[2020-03-06] MEDS ORDERED: Ondansetron 4 MG/2 ML SDV IVPUSH ONE (08:37)
[2020-03-06] MEDS ORDERED: Meclizine 25 MG Tab PO ONE ×2 (08:37→11:41)
--- NOTE | 2020-03-06 08:41 | EDM.PDOC ---
ED HPI GENERAL MEDICAL PROBLEM - General Chief Complaint: General Stated Complaint: DIZZY,TROUBLE WITH HEART RATE Time Seen by Provider: 03/06/20 08:38 Source of Information: Reports: Patient History Limitations: Reports: No Limitations - History of Present Illness INITIAL COMMENTS - FREE TEXT/NARRATIVE: pt woke up this am feeling very off balance. He felt klike the room was moving. He did not have chest opain. 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 He has had a inner ear problem alot of years ago. Onset: Today, Sudden, Other ( pt woke up with ) Duration: Hour(s): Location: Reports: Head, Generalized, Other (pt did not have any laterlizing weakness. ) Associated Symptoms: Reports: No Other Symptoms - Related Data Allergies Allergy/AdvReac Type Severity Reaction Status Date / Time Beta-Blockers Allergy Other Verified 09/13/19 06:55 (Beta-Adrenergic Bloc carvedilol Allergy Shortness Verified 09/13/19 06:55 of Breath sotalol Allergy Shortness Verified 09/13/19 06:55 of Breath codeine AdvReac Nausea Verified 09/13/19 06:55 Home Meds: Home Meds *Saw [facility] 540 Mg 540 mg PO DAILY 09/04/13 [History] Aspirin [Adult Low Dose Aspirin EC] 81 mg PO DAILY 09/04/13 [History] Benazepril [Lotensin] 10 mg PO DAILY 09/04/13 [History] Glucosam/Chondr/Collagn/Hyalur [Glucosamine & Chondroitin Cap] 1 each PO DAILY 09/04/13 [History] Multivitamin [Multi Vitamin Daily] 1 each PO DAILY 09/04/13 [History] Diltiazem [Cardizem CD] 120 mg PO DAILY 06/29/19 [History] Fluticasone Propionate [Flonase] 2 spray INH ASDIRECTED 06/29/19 [History] Furosemide [Lasix] 40 mg PO DAILY 06/29/19 [History] Isosorbide Mononitrate [Imdur] 30 mg PO DAILY 06/29/19 [History] Rosuvastatin [Crestor] 5 mg PO DAILY 06/29/19 [History] Umeclidinium Brm/Vilanterol Tr [Anoro Ellipta 62.5-25 MCG] 1 puff INH DAILY 06/29/19 [History] hydrALAZINE [Apresoline] 10 mg PO TID 06/29/19 [History] Apixaban [Eliquis] 5 mg PO BID 09/10/19 [History] Past Medical History HEENT History: Reports: Impaired Vision, Macular Degeneration Cardiovascular History: Reports: Afib, Aneurysm, CAD, High Cholesterol, Hypertension Other Cardiovascular History: implanted heart monitor Respiratory History: Reports: COPD Gastrointestinal History: Reports: Chronic Diarrhea Genitourinary History: Reports: Renal Calculus Musculoskeletal History: Reports: Fracture Other Musculoskeletal History: wrist arms leg fx Neurological History: Reports: CVA - Infectious Disease History Infectious Disease History: Reports: Chicken Pox, Influenza, Measles, Mumps, Shingles - Past Surgical History HEENT Surgical History: Reports: Other (See Below) Other HEENT Surgeries/Procedures: sinus surgery Cardiovascular Surgical History: Reports: Coronary Artery Stent Other Cardiovascular Surgeries/Procedures: stent for abdominal anurysym GI Surgical History: Reports: Colonoscopy, Hernia Repair/Other Other GI Surgeries/Procedures: abdomenal anurysm Male Surgical History: Reports: Lithotripsy (ESWL) Social & Family History - Family History Family Medical History: No Pertinent Family History - Tobacco Use Tobacco Use Status *Q: Former Tobacco User Used Tobacco, but Quit: Yes Month/Year Tobacco Last Used: 2002 - Caffeine Use Caffeine Use: Reports: Coffee - Alcohol Use Days Per Week of Alcohol Use: 7 Number of Drinks Per Day: 1 Total Drinks Per Week: 7 - Recreational Drug Use Recreational Drug Use: No ED ROS GENERAL - Review of Systems Review Of Systems: See Below Constitutional: Reports: No Symptoms HEENT: Reports: Vertigo, Other (pt is feeling very off balance. ) Respiratory: Reports: No Symptoms Cardiovascular: Reports: No Symptoms Endocrine: Reports: No Symptoms GI/Abdominal: Reports: Nausea : Reports: No Symptoms Musculoskeletal: Reports: No Symptoms Skin: Reports: No Symptoms ED EXAM, GENERAL - Physical Exam Exam: See Below Free Text/Narrative:: pt arrived with a history of acute onset of vertigo. He was quite nauseated but did not vomit. Exam Limited By: No Limitations General Appearance: Alert, Anxious, Moderate Distress, Other (pupils are equal and reactive. ) Ears: Normal TMs Nose: Normal Inspection Throat/Mouth: Normal Inspection Head: Atraumatic Neck: Normal Inspection Respiratory/Chest: No Respiratory Distress Cardiovascular: Regular Rate, Rhythm, Other ( frequent pvcs) GI/Abdominal: Soft, Non-Tender (Male) Exam: Deferred Rectal (Males) Exam: Deferred Back Exam: Normal Inspection Extremities: Normal Inspection Neurological: Alert, Oriented, Normal Cognition, Other (vertigo but no headache.) Psychiatric: Normal Affect Course - Vital Signs Last Recorded V/S: Last Vital Signs Temp 36.1 C 03/06/20 08:15 Pulse 75 03/06/20 11:48 Resp 15 03/06/20 11:48 BP 156/61 H 03/06/20 11:48 Pulse Ox 93 L 03/06/20 11:48 Orthostatic Blood Pressure [ 176/88 Standing] Orthostatic Blood Pressure [ 163/83 Sitting] Orthostatic Blood Pressure [ 159/72 Supine] - Orders/Labs/Meds Orders: Active Orders 24 hr Category Date Time Status EKG Documentation Completion [RC] ASDIRECTED Care 03/06/20 08:36 Active UA W/MICROSCOPIC [URIN] Urgent Lab 03/06/20 14:15 Ordered Sodium Chloride 0.9% [Normal Saline] 1,000 ml Med 03/06/20 08:45 Active IV ASDIRECTED Sodium Chloride 0.9% [Normal Saline] 1,000 ml Med 03/06/20 10:45 Active IV ASDIRECTED EKG 12 Lead [EK] Routine Ther 03/06/20 08:36 Ordered EKG 12 Lead [EK] Routine Ther 03/06/20 08:37 Ordered Medication Orders Sodium Chloride (Normal Saline) 1,000 mls @ 500 mls/hr IV ASDIRECTED GWEN Last Admin: 03/06/20 08:50 Dose: 500 mls/hr Documented by: ZAC Sodium Chloride (Normal Saline) 1,000 mls @ 300 mls/hr IV ASDIRECTED GWEN Last Admin: 03/06/20 11:49 Dose: 300 mls/hr Documented by: ELIE Labs: Laboratory Tests 03/06/20 03/06/20 03/06/20 Range/Units 08:44 08:44 10:52 WBC 8.0 (4.5-11.0) K/uL RBC 5.23 (4.30-5.90) M/uL Hgb 15.8 H (12.0-15.0) g/dL Hct 48.3 (40.0-54.0) % MCV 92 (80-98) fL MCH 30 (27-31) pg MCHC 33 (32-36) % Plt Count 179 (150-400) K/uL Neut % (Auto) 78 H (36-66) % Lymph % (Auto) 11 L (24-44) % [place] % (Auto) 9 H (2-6) % Eos % (Auto) 2 (2-4) % Baso % (Auto) 0 (0-1) % Sodium 142 (140-148) mmol/L Potassium 3.9 (3.6-5.2) mmol/L Chloride 107 (100-108) mmol/L Carbon Dioxide 27 (21-32) mmol/L Anion Gap 8.4 (5.0-14.0) mmol/L BUN 17 (7-18) mg/dL Creatinine 1.3 (0.8-1.3) mg/dL Est Cr Clr Drug Dosing 49.74 mL/min Estimated GFR (MDRD) 53 L (>60) Glucose 104 (74-106) mg/dL Calcium 9.2 (8.5-10.1) mg/dL Total Bilirubin 0.6 (0.2-1.0) mg/dL AST 23 (15-37) U/L ALT 35 (12-78) U/L Alkaline Phosphatase 79 (46-116) U/L Troponin I 0.026 (0.000-0.056) ng/mL Total Protein 6.4 (6.4-8.2) g/dL Albumin 3.6 (3.4-5.0) g/dL Globulin 2.8 (2.3-3.5) g/dL Albumin/Globulin Ratio 1.3 (1.2-2.2) Urine Color Yellow (YELLOW) Urine Appearance Clear (CLEAR) Urine pH 8.0 (5.0-8.0) Ur Specific [place] 1.020 (1.008-1.030) Urine Protein Negative (NEGATIVE) mg/dL Urine Glucose (UA) Negative (NEGATIVE) mg/dL Urine Ketones Negative (NEGATIVE) mg/dL Urine Occult Blood Negative (NEGATIVE) Urine Nitrite Negative (NEGATIVE) Urine Bilirubin Negative (NEGATIVE) Urine Urobilinogen 0.2 (0.2-1.0) EU/dL Ur Leukocyte Esterase Negative (NEGATIVE) Urine RBC Not seen (0-5) Urine WBC Not seen (0-5) Ur Epithelial Cells Not seen Amorphous Sediment Few Urine Bacteria Not seen Urine Mucus Not seen Meds: Medications Generic Name Dose Route Start Last Admin Trade Name Freq PRN Reason Stop Dose Admin Sodium Chloride 1,000 mls @ 500 mls/hr 03/06/20 08:45 03/06/20 08:50 Normal Saline IV 500 mls/hr ASDIRECTED GWEN Administration Sodium Chloride 1,000 mls @ 300 mls/hr 03/06/20 10:45 03/06/20 11:49 Normal Saline IV 300 mls/hr ASDIRECTED GWEN Administration Discontinued Medications Generic Name Dose Route Start Last Admin Trade Name Freq PRN Reason Stop Dose Admin Lorazepam 0.5 mg 03/06/20 13:05 03/06/20 13:09 Ativan PO 03/06/20 13:06 0.5 mg ONETIME ONE Administration Meclizine HCl 25 mg 03/06/20 08:37 03/06/20 08:49 Antivert PO 03/06/20 08:38 25 mg ONETIME ONE Administration Meclizine HCl 12.5 mg 03/06/20 11:41 03/06/20 11:49 Antivert PO 03/06/20 11:42 12.5 mg ONETIME ONE Administration Ondansetron HCl 4 mg 03/06/20 08:37 03/06/20 08:50 Zofran IVPUSH 03/06/20 08:38 4 mg ONETIME ONE Administration - Re-Assessments/Exams Free Text/Narrative Re-Assessment/Exam: 03/06/20 14:32 pt had a neg cat scan of the head. His ekg showed frequent pvcs which is not new to him. He was given iv fluids, antivert, .5 of ativan, and zoforan. He is feeling better and will go home at low activity. Departure - Departure Time of Disposition: 14:30 Disposition: Home, Self-Care 01 Condition: Fair Clinical Impression: Inner ear dysfunction, History of hypertension - Discharge Information Referrals: Shayne Wheatley MD [Primary Care Provider] - Forms: ED Department Discharge Care Plan Goals: encourage fluids, low activity, antivert 25 mg tid for the next 2 days and then use prn. rtc if thing should get worse. Sepsis Event Note (ED) - Evaluation Sepsis Screening Result: No Definite Risk - Focused Exam Vital Signs: Vital Signs Temp Pulse Resp BP Pulse Ox 03/06/20 11:48 75 15 156/61 H 93 L 03/06/20 11:18 74 11 L 151/64 H 93 L 03/06/20 10:41 77 16 163/83 H 96 03/06/20 09:53 73 10 L 144/71 H 97 03/06/20 08:15 36.1 C 72 11 L 172/82 H 99 - My Orders Last 24 Hours: My Active Orders 03/06/20 08:36 EKG Documentation Completion [RC] ASDIRECTED EKG 12 Lead [EK] Routine 03/06/20 08:37 EKG 12 Lead [EK] Routine 03/06/20 08:45 Sodium Chloride 0.9% [Normal Saline] 1,000 ml IV ASDIRECTED 03/06/20 10:45 Sodium Chloride 0.9% [Normal Saline] 1,000 ml IV ASDIRECTED 03/06/20 14:15 UA W/MICROSCOPIC [URIN] Urgent - Assessment/Plan Last 24 Hours: My Active Orders 03/06/20 08:36 EKG Documentation Completion [RC] ASDIRECTED EKG 12 Lead [EK] Routine 03/06/20 08:37 EKG 12 Lead [EK] Routine 03/06/20 08:45 Sodium Chloride 0.9% [Normal Saline] 1,000 ml IV ASDIRECTED 03/06/20 10:45 Sodium Chloride 0.9% [Normal Saline] 1,000 ml IV ASDIRECTED 03/06/20 14:15 UA W/MICROSCOPIC [URIN] Urgent
[2020-03-06] MEDS ORDERED: Sodium Chloride 0.9% 1,000 ML IV SCH ×2 (08:45→10:45)
--- NOTE | 2020-03-06 10:26 | CT ---
Head wo Cont CLINICAL HISTORY: Vertigo COMPARISON: MR brain 2009 TECHNIQUE: Transverse scans were obtained from the base of the skull through the vertex without IV contrast on a multislice, multidetector CT scanner. Auto dosage reduction and iterative reconstruction techniques employed. FINDINGS: No focal abnormal parenchymal densities are identified.. There is no mass effect, hemorrhage, or extraaxial collection. The basal cisterns and sulci over the convexities are moderately prominent. The ventricles are prominent. IMPRESSION: Advanced atrophic changes No acute intracranial process
[2020-03-06 12:10] VITALS: BP 156/61; PULSE 75
[2020-03-06] MEDS ORDERED: LORazepam 0.5 MG Tab PO ONE (13:05)
== END 2020-03-06 14:52 | disposition home or self-care (01) ==
LOC: JP.ED 08:07
DX: H83.2X9 Labyrinthine dysfunction, unspecified ear (principal); I48.91 Unspecified atrial fibrillation; I25.10 Atherosclerotic heart disease of native coronary artery without angina pectoris; E78.00 Pure hypercholesterolemia, unspecified; I10 Essential (primary) hypertension; J44.9 Chronic obstructive pulmonary disease, unspecified; Z86.73 Personal history of transient ischemic attack (TIA), and cerebral infarction without residual deficits; Z79.82 Long term (current) use of aspirin; Z79.01 Long term (current) use of anticoagulants; Z79.899 Other long term (current) drug therapy; Z88.8 Allergy status to other drugs, medicaments and biological substances; Z88.5 Allergy status to narcotic agent; Z87.891 Personal history of nicotine dependence
CPT/HCPCS: 36415; 70450; 70450-26; 80053; 81001; 84484; 85025; 93005; 93010; 96374; 99284; 99284-25; A9270-GY; J2405; J7030

== ENCOUNTER 2020-10-09 10:46 | Emergency (ER) | payer MEDICARE, BC ==
--- NOTE | 2020-10-09 11:28 | EDM.PDOC ---
ED HPI GENERAL MEDICAL PROBLEM - General Chief Complaint: General Stated Complaint: MEDICAL VIA [facility] Time Seen by Provider: 10/09/20 11:05 Source of Information: Reports: Patient, EMS, EMS Notes Reviewed, Senior Living Records, RN History Limitations: Reports: No Limitations - History of Present Illness INITIAL COMMENTS - FREE TEXT/NARRATIVE: Patient comes to us this morning from assisted living where he is rehabbing from recent CABG x2, aortic valve replacement in a pulmonary vein isolation. He is on levofloxacin for pneumonia 10/04 HGB was 8.4 HGB this am at [facility] was 5.9. Additionally white count has gone from 16.2-17.2. Patient states he is tired, short of breath, has some abdomen pain generalized and had a bout of nausea this a.m. Patient was sent from assisted living facility due to decreased labs and increased complaints of not feeling well from patient. Patient has POLST form that shows full CPR status. Patient states "he is not ready to go to [facility] yet ". Onset: Today Onset Date: 10/09/20 Duration: Getting Worse Location: Reports: Abdomen, Generalized Quality: Reports: Ache Severity: Moderate Improves with: Reports: None Worsens with: Reports: None Context: Reports: Other (recent surgery, CABG x2, aortic valve replacement and pulmonary vein isolation. recent cardioversion, recent dx pneumonia) Associated Symptoms: Reports: Malaise, Weakness - Related Data Allergies Allergy/AdvReac Type Severity Reaction Status Date / Time Beta-Blockers Allergy Other Verified 09/20/20 09:58 (Beta-Adrenergic Bloc carvedilol Allergy Shortness Verified 09/20/20 09:58 of Breath sotalol Allergy Shortness Verified 09/20/20 09:58 of Breath codeine AdvReac Nausea Verified 09/20/20 09:58 Home Meds: Home Meds Aspirin [Adult Low Dose Aspirin EC] 81 mg PO DAILY 09/04/13 [History] Glucosam/Chondr/Collagn/Hyalur [Glucosamine & Chondroitin Cap] 1 each PO DAILY 09/04/13 [History] Diltiazem [Cardizem CD] 120 mg PO DAILY 06/29/19 [History] Furosemide [Lasix] 40 mg PO DAILY 06/29/19 [History] Rosuvastatin [Crestor] 20 mg PO BEDTIME 06/29/19 [History] Umeclidinium Brm/Vilanterol Tr [Anoro Ellipta 62.5-25 MCG] 1 puff INH DAILY 06/29/19 [History] Apixaban [Eliquis] 5 mg PO BID 09/10/19 [History] Albuterol Sulfate [Albuterol Sulfate Hfa] 2 puff INH Q6H PRN 10/09/20 [History] Amiodarone HCl 400 mg PO DAILY 10/09/20 [History] Ipratropium [Atrovent HFA Inh] 2 puff INH Q4H PRN 10/09/20 [History] Meclizine HCl 25 mg PO Q8H PRN 10/09/20 [History] Pantoprazole [ProTONIX] 40 mg PO DAILY 10/09/20 [History] Potassium Citrate [Potassium Citrate ER] 10 meq PO DAILY 10/09/20 [History] Umeclidinium Brm/Vilanterol Tr [Anoro Ellipta 62.5-25 MCG] 1 puff INH DAILY 10/09/20 [History] guaiFENesin [Mucinex] 600 mg PO BID 10/09/20 [History] oxyCODONE HCl/Acetaminophen [Oxycodone-Acetaminophen 5-325] 1 tab PO Q6H PRN 10/09/20 [History] Past Medical History HEENT History: Reports: Impaired Vision, Macular Degeneration Cardiovascular History: Reports: Afib, Aneurysm, CAD, High Cholesterol, Hypertension Other Cardiovascular History: implanted heart monitor Respiratory History: Reports: COPD Gastrointestinal History: Reports: Chronic Diarrhea Genitourinary History: Reports: Renal Calculus Musculoskeletal History: Reports: Fracture Other Musculoskeletal History: wrist arms leg fx Neurological History: Reports: CVA - Infectious Disease History Infectious Disease History: Reports: Chicken Pox, Influenza, Measles, Mumps, Shingles - Past Surgical History HEENT Surgical History: Reports: Other (See Below) Other HEENT Surgeries/Procedures: sinus surgery Cardiovascular Surgical History: Reports: Coronary Artery Stent Other Cardiovascular Surgeries/Procedures: stent for abdominal anurysym GI Surgical History: Reports: Colonoscopy, Hernia Repair/Other Other GI Surgeries/Procedures: abdomenal anurysm Male Surgical History: Reports: Lithotripsy (ESWL) Social & Family History - Family History Family Medical History: No Pertinent Family History - Tobacco Use Tobacco Use Status *Q: Never Tobacco User - Caffeine Use Caffeine Use: Reports: Coffee ED ROS GENERAL - Review of Systems Review Of Systems: See Below Constitutional: Reports: Weakness, Fatigue HEENT: Reports: No Symptoms Respiratory: Reports: Shortness of Breath (with exertion) Cardiovascular: Reports: Dyspnea on Exertion, Edema. Denies: Chest Pain Endocrine: Reports: Fatigue GI/Abdominal: Reports: Abdominal Pain : Reports: No Symptoms Musculoskeletal: Reports: No Symptoms Skin: Reports: Wound (surgical chest wound ) Neurological: Reports: No Symptoms Psychiatric: Reports: No Symptoms Hematologic/Lymphatic: Reports: Anemia, Other ED EXAM, GENERAL - Physical Exam Exam: See Below Exam Limited By: No Limitations General Appearance: Alert, Moderate Distress Eye Exam: Bilateral Eye: Normal Inspection, PERRL Ears: Normal External Exam, Normal Canal, Hearing Grossly Normal, Normal TMs Nose: Normal Inspection, Normal Mucosa, No Blood Throat/Mouth: Normal Inspection Head: Atraumatic Neck: Normal Inspection, Supple Cardiovascular: Regular Rate, Rhythm (hx of afib currently on diltiazem and amiodarone) Neurological: Alert, Oriented, CN II-XII Intact, Normal Cognition Psychiatric: Normal Affect, Normal Mood Skin Exam: Warm, Dry, Wound/Incision (healing sternal incision w/o sx of infection) Lymphatic: No Adenopathy #1 Interpretation EKG Date: 10/09/20 Time: 11:14 Rhythm: NSR Rate (Beats/Min): 88 [place]: Normal P-Wave: Present QRS: Normal Course - Vital Signs Last Recorded V/S: Last Vital Signs Temp 36.6 C 10/09/20 19:04 Pulse 94 10/09/20 19:04 Resp 16 10/09/20 19:04 BP 139/75 10/09/20 19:04 Pulse Ox 96 10/09/20 19:04 - Orders/Labs/Meds Orders: Active Orders 24 hr Category Date Time Status PACKED CELLS [RED BLOOD CELLS LP] [BBK] Stat Lab 10/09/20 11:32 Results PATIENT RETYPE [BBK] Stat Lab 10/09/20 11:32 Results TYPE AND SCREEN [BBK] Stat Lab 10/09/20 11:32 Results Transfuse Red Blood Cells [COMM] Stat Oth 10/09/20 13:21 Ordered EKG 12 Lead [EK] Routine Ther 10/09/20 11:19 Ordered Labs: Laboratory Tests 10/09/20 10/09/20 10/09/20 Range/Units 11:32 11:32 17:54 Sodium 139 L (140-148) mmol/L Potassium 3.5 L (3.6-5.2) mmol/L Chloride 103 (100-108) mmol/L Carbon Dioxide 27 (21-32) mmol/L Anion Gap 12.5 (5.0-14.0) mmol/L BUN 43 H D (7-18) mg/dL Creatinine 1.3 (0.8-1.3) mg/dL Est Cr Clr Drug Dosing 48.27 mL/min Estimated GFR (MDRD) 53 L (>60) Glucose 130 H (74-106) mg/dL Calcium 7.7 L D (8.5-10.1) mg/dL SARS CoV-2 RNA Rapid YOVANI Negative Blood Type A POSITIVE Gel Antibody Screen Negative Crossmatch See Detail Stool specimen for occult blood is positive. Comparison of labs drawn on 10/04: potassium slightly decreased down from 3.7- 3.5, decreasing GFR and calcium from 8.9-7.7. Meds: Medications Discontinued Medications Generic Name Dose Route Start Last Admin Trade Name Freq PRN Reason Stop Dose Admin Sodium Chloride 1,000 mls @ 500 mls/hr 10/09/20 12:15 10/09/20 12:20 Normal Saline IV 500 mls/hr ASDIRECTED GWEN Administration - Radiology Interpretation Free Text/Narrative:: CT of abdomen and pelvis shows moderate left pleural effusion with left lower lobe airspace disease a small right pleural effusion and/or right lower lobe airspace disease a stable abdominal aortic aneurysm with aortoiliac graft. Nonacute intestinal gas pattern. Fecal retention and multiple renal cysts similar to prior study. Patient also has nonobstructing renal calculi. None of which explains reason for GI bleed. And decrease of hemoglobin from 8.4 to 5.9. Chest x-ray similar to CT scan shows pleural effusions and airspace disease. Pneumonia is not noted by radiologist. Patient has been taking levofloxacin for a Pseudomonas pneumonia. Antibiotic course is complete at this time. Patient will be crossmatched for 2 units of blood. - Re-Assessments/Exams Free Text/Narrative Re-Assessment/Exam: 10/09/20 13:[address] [facility] 1 [id number] Dr. Reyes who is the hospitalist. Patient is excepted pending bed placement approximately 4 hours. If unable to crossmatch and administer 2 units of blood here in our facility I am to call back for more immediate transfer plan. Patient was crossmatched for 2 units of blood. And is consented to its administration. is notified of plan to transfer patient to [place] once patient has bed acceptance. We will try again between 4 and 5:00 to determine plan of action. 10/09/[address] [facility] 1 call. Bed meeting is in progress. Should have answer shortly as to plan for patient's transfer. 10/09/20 17:56 acceptance for patient to go to [facility]. Call to ambulance crew to arrange for transfer. Will notify of updated plan. Free Text/Narrative Re-Assessment/Exam: 10/09/20 18:03 Patient is tolerated first unit of blood without difficulty. Patient has been allowed to have a heart healthy regular diet he is eating small amounts well without nausea. Patient is encouraged small sips of fluid. 10/09/20 18:04 [facility] contacted at [phone] for transport to [facility] Departure - Departure Time of Disposition: 18:45 Disposition: DC/Tfer to Acute Hospital 02 Condition: Fair Clinical Impression: GI bleed - Discharge Information *PRESCRIPTION DRUG MONITORING PROGRAM REVIEWED*: Not Applicable *COPY OF PRESCRIPTION DRUG MONITORING REPORT IN PATIENT DENISE: Not Applicable Referrals: PCP,None [Primary Care Provider] - Forms: ED Department Discharge Additional Instructions: Ambulance crew to transfer patient to [facility] accepted by Dr. Reyes hospitalist. Patient received 1 unit of blood with second unit hanging/running at this time. We will continue infusion in route to [place] patient and patient's notified of transfer. Patient accepting of transfer. We will continue care there. Wayne Simon acrrodríguez notified of patient transfer to [place]. Family would like the bed held for the patient. Sepsis Event Note (ED) - Evaluation Sepsis Screening Result: No Definite Risk - Focused Exam Vital Signs: Vital Signs Temp Temp Pulse Resp BP Pulse Ox 10/09/20 19:04 36.6 C 94 16 139/75 96 10/09/20 18:15 36.4 C 91 15 131/74 10/09/20 17:58 36.6 C 90 15 140/80 10/09/20 17:43 36.4 C 91 25 H 141/71 H 10/09/20 17:28 36.4 C 98 10 L 124/54 L 10/09/20 17:13 36.7 C 89 16 148/71 H 10/09/20 17:00 36.6 C 36.6 C 91 15 136/73 96 10/09/20 16:30 36.6 C 91 15 136/73 10/09/20 16:00 36.6 C 89 17 153/76 H 10/09/20 15:49 36.3 C 88 18 144/72 H 97 10/09/20 15:11 36.5 C 96 16 129/90 10/09/20 14:55 36.5 C 91 22 H 120/99 H 10/09/20 14:39 36.5 C 89 20 124/70 10/09/20 14:24 36.5 C 95 18 121/67 10/09/20 14:19 36.4 C 90 15 122/64 97 10/09/20 14:15 36.4 C 93 15 122/64 10/09/20 10:52 36.4 C 96 14 112/63 94 L - My Orders Last 24 Hours: My Active Orders 10/09/20 11:19 EKG 12 Lead [EK] Routine 10/09/20 11:32 PACKED CELLS [RED BLOOD CELLS LP] [BBK] Stat PATIENT RETYPE [BBK] Stat TYPE AND SCREEN [BBK] Stat 10/09/20 13:21 Transfuse Red Blood Cells [COMM] Stat - Assessment/Plan Last 24 Hours: My Active Orders 10/09/20 11:19 EKG 12 Lead [EK] Routine 10/09/20 11:32 PACKED CELLS [RED BLOOD CELLS LP] [BBK] Stat PATIENT RETYPE [BBK] Stat TYPE AND SCREEN [BBK] Stat 10/09/20 13:21 Transfuse Red Blood Cells [COMM] Stat
[2020-10-09] MEDS ORDERED: Sodium Chloride 0.9% 1,000 ML IV SCH (12:15)
--- NOTE | 2020-10-09 12:34 | CT ---
Abdomen Pelvis wo Cont CLINICAL HISTORY: Abdominal pain COMPARISON: CTA abdomen to 321. TECHNIQUE: Axial tomographic images are obtained from the dome of the diaphragm to the pubic symphysis without IV contrast enhancement. No oral contrast was used. The dosage reduction and iterative reconstruction techniques employed. FINDINGS: The lung bases show some patchy airspace disease in both lung bases, left greater than right. There is a moderate left pleural effusion and a small right pleural effusion. This is new since prior study. There is a small pericardial effusion versus pericardial thickening. The liver is free of mass or biliary dilatation. The gallbladder is mildly distended. There is some sludge in the dependent portion. The spleen has a normal size and shape. The pancreas shows no mass or inflammatory change. The adrenal glands appear normal bilaterally. The right kidney contains some punctate calcifications. There is a 2.4 cm cyst in the midpole similar to prior study. There is a 3.9 x 4.2 cm cyst in the midpole left kidney similar to prior study. There are some smaller stable cyst. Some minimal nephrocalcinosis. Ureters have a normal course and caliber. There is a small amount of air in the nondependent portion of the urinary bladder. This may be from recent instrumentation. Clinical correlation is The aorta contains an aorto iliac stent graft. Aneurysm diameter is unchanged from prior study at 4.7 cm. There is no suspicious retroperitoneal adenopathy. The small intestinal configuration is nonacute. There is gas and feces throughout the colon. There is some fecal retention. Abdominal pelvic fat planes and low pelvic side chatterjee are well demarcated. Appendix has normal contour. IMPRESSION: Moderate the left pleural effusion and left lower lobe airspace disease Small right pleural effusion and right lower lobe airspace disease Stable abdominal aortic aneurysm with aortoiliac graft Nonacute intestinal gas pattern Fecal retention Multiple renal cysts similar to prior study Nonobstructing renal calculi
--- NOTE | 2020-10-09 12:46 | CR ---
CHEST: 2 view CLINICAL HISTORY:SOB COMPARISON:2018 FINDINGS: Heart is mildly enlarged. Patient has had previous sternotomy. There is a monitor in place over the left hemithorax. Pulmonary vascularity is normal. Patient has a moderate size left pleural effusion and some left lower lobe airspace disease which may be compressive atelectasis. There is underlying emphysema. Impression: Moderate left pleural effusion Left lower lobe airspace disease may be some compressive atelectasis Mild cardiomegaly
[2020-10-09 19:13] VITALS: BP 139/75; PULSE 94
== END 2020-10-09 19:10 ==
LOC: JP.ED 10:46
DX: K92.2 Gastrointestinal hemorrhage, unspecified (principal); I48.91 Unspecified atrial fibrillation; I25.10 Atherosclerotic heart disease of native coronary artery without angina pectoris; E78.00 Pure hypercholesterolemia, unspecified; I10 Essential (primary) hypertension; J44.9 Chronic obstructive pulmonary disease, unspecified; Z95.1 Presence of aortocoronary bypass graft; Z95.2 Presence of prosthetic heart valve; Z88.8 Allergy status to other drugs, medicaments and biological substances; Z88.5 Allergy status to narcotic agent; Z79.82 Long term (current) use of aspirin; Z79.01 Long term (current) use of anticoagulants; Z79.899 Other long term (current) drug therapy; Z20.822 Contact with and (suspected) exposure to COVID-19
CPT/HCPCS: 36415; 36430; 71046; 74176; 80048; 82272; 86850; 86900; 86901; 86920; 86922; 93005; 99285; J7030; P9016; U0002

== ENCOUNTER 2020-10-28 16:06 | Emergency (ER) | payer MEDICARE, BC ==
[2020-10-28 18:14] VITALS: BP 128/60; PULSE 84
--- NOTE | 2020-10-28 18:29 | EDM.PDOC ---
ED HPI GENERAL MEDICAL PROBLEM - General Chief Complaint: Gastrointestinal Problem Stated Complaint: BLOODY STOOL Time Seen by Provider: 10/28/20 17:50 Source of Information: Reports: Patient History Limitations: Reports: No Limitations - History of Present Illness INITIAL COMMENTS - FREE TEXT/NARRATIVE: Patient presents today with bright red blood in the stool when he is trying to have a BM. He produced no bowel movement. Water in the toilet turned red. Patient has a 3-week ago history of a GI bleed. He had a total of 5 units of blood transfused between our facility and [place]. Just prior to the GI bleed he had a heart procedure. Up until today patient has had no problems. However notes yesterday he was not eating well or per his usual self. Patient had a small bowel movement yesterday does not recall the bowel movement prior to that. Onset: Today, Sudden Location: Reports: Abdomen Quality: Reports: Ache (Point tenderness upper right quadrant base of liver) Severity: Moderate Improves with: Reports: None Worsens with: Reports: None Context: Reports: Other - Related Data Allergies Allergy/AdvReac Type Severity Reaction Status Date / Time Beta-Blockers Allergy Other Verified 10/28/20 16:47 (Beta-Adrenergic Bloc carvedilol Allergy Shortness Verified 10/28/20 16:47 of Breath sotalol Allergy Shortness Verified 10/28/20 16:47 of Breath codeine AdvReac Nausea Verified 10/28/20 16:47 Home Meds: Home Meds Aspirin [Adult Low Dose Aspirin EC] 81 mg PO DAILY 09/04/13 [History] Glucosam/Chondr/Collagn/Hyalur [Glucosamine & Chondroitin Cap] 1 each PO DAILY 09/04/13 [History] Diltiazem [Cardizem CD] 120 mg PO DAILY 06/29/19 [History] Furosemide [Lasix] 40 mg PO DAILY 06/29/19 [History] Rosuvastatin [Crestor] 20 mg PO BEDTIME 06/29/19 [History] Apixaban [Eliquis] 5 mg PO BID 09/10/19 [History] Albuterol Sulfate [Albuterol Sulfate Hfa] 2 puff INH Q6H PRN 10/09/20 [History] Amiodarone HCl 400 mg PO DAILY 10/09/20 [History] Ipratropium [Atrovent HFA Inh] 2 puff INH Q4H PRN 10/09/20 [History] Meclizine HCl 25 mg PO Q8H PRN 10/09/20 [History] Pantoprazole [ProTONIX] 40 mg PO DAILY 10/09/20 [History] Potassium Citrate [Potassium Citrate ER] 10 meq PO DAILY 10/09/20 [History] Umeclidinium Brm/Vilanterol Tr [Anoro Ellipta 62.5-25 MCG] 1 puff INH DAILY 10/09/20 [History] Past Medical History HEENT History: Reports: Impaired Vision, Macular Degeneration Cardiovascular History: Reports: Afib, Aneurysm, CAD, High Cholesterol, Hypertension Other Cardiovascular History: implanted heart monitor Respiratory History: Reports: COPD Gastrointestinal History: Reports: Chronic Diarrhea Genitourinary History: Reports: Renal Calculus Musculoskeletal History: Reports: Fracture Other Musculoskeletal History: wrist arms leg fx Neurological History: Reports: CVA Hematologic History: Reports: Anticoagulation Therapy - Infectious Disease History Infectious Disease History: Reports: Chicken Pox, Influenza, Measles, Mumps, Shingles - Past Surgical History Head Surgeries/Procedures: Reports: None HEENT Surgical History: Reports: Other (See Below) Other HEENT Surgeries/Procedures: sinus surgery Cardiovascular Surgical History: Reports: Coronary Artery Bypass, Coronary Artery Stent, Valve Replacement Other Cardiovascular Surgeries/Procedures: stent for abdominal anurysym Respiratory Surgical History: Reports: None GI Surgical History: Reports: Colonoscopy, Hernia Repair/Other Other GI Surgeries/Procedures: abdomenal anurysm Male Surgical History: Reports: Lithotripsy (ESWL) Neurological Surgical History: Reports: None Musculoskeletal Surgical History: Reports: None Social & Family History - Family History Family Medical History: No Pertinent Family History - Caffeine Use Caffeine Use: Reports: Coffee ED ROS GENERAL - Review of Systems Review Of Systems: See Below Constitutional: Reports: Decreased Appetite HEENT: Reports: No Symptoms Respiratory: Reports: No Symptoms Cardiovascular: Reports: No Symptoms Endocrine: Reports: No Symptoms GI/Abdominal: Reports: Decreased Appetite, Flatus, Other (Bright red blood in toilet without bowel movement) : Reports: No Symptoms Musculoskeletal: Reports: No Symptoms Skin: Reports: No Symptoms Neurological: Reports: No Symptoms Psychiatric: Reports: No Symptoms Hematologic/Lymphatic: Reports: Other (Blood in toilet) ED EXAM, GI/ABD - Physical Exam Exam: See Below Exam Limited By: No Limitations General Appearance: Alert, WD/WN, No Apparent Distress Respiratory/Chest: No Respiratory Distress, Lungs Clear, Normal Breath Sounds, No Accessory Muscle Use, Chest Non-Tender Cardiovascular: Normal Peripheral Pulses, Regular Rate, Rhythm, Other (Slight edema of left lower leg versus no edema in right) GI/Abdominal Exam: Normal Bowel Sounds, Soft, No Organomegaly, No Distention, No Abnormal Bruit, No Mass, Tender (Right upper quadrant at edge of liver closer to midline). No: Abnormal Bowel Sounds, Mass, Hepatomegaly, Splenomegaly (Male) Exam: Deferred Rectal (Males) Exam: Normal Rectal Tone, Bloody Stool. No: Hemorrhoids, Tenderness Back Exam: Normal Inspection Extremities: Pedal Edema (Slight edema on left versus no edema on right nonpitting) Neurological: Alert, Oriented, CN II-XII Intact, Normal Cognition Psychiatric: Normal Affect Skin Exam: Warm, Dry, Intact, Normal Color (Patient has color to face versus very pale appearance previous visit 3 weeks ago) Lymphatic: No Adenopathy Course - Vital Signs Last Recorded V/S: Last Vital Signs Temp 36.2 C 10/28/20 16:57 Pulse 84 10/28/20 18:14 Resp 16 10/28/20 16:57 BP 128/60 10/28/20 18:14 Pulse Ox 92 L 10/28/20 18:14 - Orders/Labs/Meds Orders: Active Orders 24 hr Category Date Time Status Abdomen 1V Upright [CR] Stat Exams 10/28/20 18:24 Taken Labs: Laboratory Tests 10/28/20 10/28/20 Range/Units 18:11 18:25 WBC 10.9 (4.5-11.0) K/uL RBC 3.68 L (4.30-5.90) M/uL Hgb 10.6 L D (12.0-15.0) g/dL Hct 34.8 L (40.0-54.0) % MCV 95 (80-98) fL MCH 29 (27-31) pg MCHC 31 L (32-36) % Plt Count 197 (150-400) K/uL Neut % (Auto) 83.1 H (36-66) % Lymph % (Auto) 5.5 L (24-44) % [place] % (Auto) 9.3 H (2-6) % Eos % (Auto) 1.9 L (2-4) % Baso % (Auto) 0.2 (0-1) % Sodium 138 L (140-148) mmol/L Potassium 3.6 (3.6-5.2) mmol/L Chloride 105 (100-108) mmol/L Carbon Dioxide 25 (21-32) mmol/L Anion Gap 11.6 (5.0-14.0) mmol/L BUN 13 D (7-18) mg/dL Creatinine 1.3 (0.8-1.3) mg/dL Est Cr Clr Drug Dosing 48.27 mL/min Estimated GFR (MDRD) 53 L (>60) Glucose 104 (74-106) mg/dL Calcium 8.1 L (8.5-10.1) mg/dL - Radiology Interpretation Free Text/Narrative:: Plain films abd does not show obstruction however pt has lg amounts of stool. - Re-Assessments/Exams Free Text/Narrative Re-Assessment/Exam: 10/28/20 19:52 Patient instructed to utilize prune juice to help promote bowel movement. Patient should not strain due to recent heart procedure. Encourage use of stool softener daily especially with the use of iron which is a constipating substance. Hemoglobin today is 10.6 which is 3/10 better than it was on 914 of 10.3. I feel patient is stable he is not having a GI bleed at this time. He ma y have had a hard stool that caused a few drops of blood to be in the toilet. However if bleeding returns he is to return to the ER or to his clinic doctor immediately. He has any further questions he can call or return to the ER until he is able to be seen by his regular provider.. Departure - Departure Time of Disposition: 20:24 Disposition: Home, Self-Care 01 Condition: Fair Clinical Impression: Constipation, Bleeding - Discharge Information *PRESCRIPTION DRUG MONITORING PROGRAM REVIEWED*: Not Applicable *COPY OF PRESCRIPTION DRUG MONITORING REPORT IN PATIENT DENISE: Not Applicable Instructions: Constipation, Adult Referrals: Shayne Wheatley MD [Primary Care Provider] - Forms: ED Department Discharge Additional Instructions: Patient to start with stool softener daily and utilize prune juice to help promote bowel movement. Patient is reminded not to strain. He has any more blood in the stool or profuse bleeding he is to return to the ER immediately. Patient does have a follow-up appointment with his heart doctor as well as his primary care provider this week. They can recheck his hemoglobin at that time. I feel comfortable on 914 he was checked to have a 10.3 today in the ER he has a 10.6 hemoglobin. I do not feel as he is losing blood at this point. - My Orders Last 24 Hours: My Active Orders 10/28/20 18:24 Abdomen 1V Upright [CR] Stat - Assessment/Plan Last 24 Hours: My Active Orders 10/28/20 18:24 Abdomen 1V Upright [CR] Stat Assessment:: Constipation with hard stool that caused some blood in the toilet. No presence of hemorrhoids. Plan: Patient to utilize stool softener and prune juice for bowel movements. Patient to return to ER if he has any further blood loss. Keep follow-up appointment with both purification supervisor and your regular provider this next week. Have hemoglobin checked for comparison and follow-up.
--- NOTE | 2020-10-30 09:42 | CR ---
Abdomen 1V Upright CLINICAL HISTORY: Constipation FINDINGS: The small chest gas pattern is nonspecific. The there is gas and feces throughout the colon without significant fecal retention. There is some moderate stool in the rectum. Patient has an aorto iliac stent graft. There is a moderate left pleural effusion IMPRESSION: Nonacute intestinal gas pattern There is moderate stool in the rectum Moderate-sized left pleural effusion also seen on an [place] CT
== END 2020-10-28 20:25 | disposition home or self-care (01) ==
LOC: JP.ED 16:06
DX: K59.09 Other constipation (principal); K62.5 Hemorrhage of anus and rectum; I10 Essential (primary) hypertension; J44.9 Chronic obstructive pulmonary disease, unspecified; E78.00 Pure hypercholesterolemia, unspecified; I25.10 Atherosclerotic heart disease of native coronary artery without angina pectoris; Z88.8 Allergy status to other drugs, medicaments and biological substances; Z88.5 Allergy status to narcotic agent; Z79.82 Long term (current) use of aspirin; Z79.01 Long term (current) use of anticoagulants; Z79.899 Other long term (current) drug therapy
CPT/HCPCS: 36415; 74018; 74018-26; 80048; 85025; 99285-25

== ENCOUNTER 2020-11-06 17:27 | Emergency (ER) | payer MEDICARE, BC ==
[2020-11-06] MEDS ORDERED: Aspirin 81 MG Tab.Chew PO ONE (19:13)
[2020-11-06] MEDS ORDERED: Albuterol 8 GM Inhaler INH ONE (19:18)
--- NOTE | 2020-11-06 19:28 | EDM.PDOC ---
ED HPI GENERAL MEDICAL PROBLEM - General Chief Complaint: Cardiovascular Problem Stated Complaint: SOB, LOW BP Time Seen by Provider: 11/06/20 18:39 Source of Information: Reports: Patient History Limitations: Reports: No Limitations - History of Present Illness INITIAL COMMENTS - FREE TEXT/NARRATIVE: Acute dyspnea this am upon awakening. Used his 's oxygen this am. Home visits with PT and home healthcare nurse and hypotension (systolic 90s) and O2 sat 86%. Sidney tired all day. S/P CABG and aortic valve replacement (porcine) in mid June. History of a.fib and on apixaban until surgery and not restarted. Left leg swollen since surgery but veins harvested for CABG. Had chest pain today, no radiation, dyspnea or sweating. No orthopnea or PND. Has COPD but didn't try inhalers. No fever or chills. - Related Data Allergies Allergy/AdvReac Type Severity Reaction Status Date / Time Beta-Blockers Allergy Other Verified 11/06/20 18:37 (Beta-Adrenergic Bloc carvedilol Allergy Shortness Verified 11/06/20 18:37 of Breath sotalol Allergy Shortness Verified 11/06/20 18:37 of Breath codeine AdvReac Nausea Verified 11/06/20 18:37 Home Meds: Home Meds Aspirin [Adult Low Dose Aspirin EC] 81 mg PO DAILY 09/04/13 [History] Glucosam/Chondr/Collagn/Hyalur [Glucosamine & Chondroitin Cap] 1 each PO DAILY 09/04/13 [History] Diltiazem [Cardizem CD] 120 mg PO DAILY 06/29/19 [History] Furosemide [Lasix] 40 mg PO DAILY 06/29/19 [History] Rosuvastatin [Crestor] 20 mg PO BEDTIME 06/29/19 [History] Apixaban [Eliquis] 5 mg PO BID 09/10/19 [History] Albuterol Sulfate [Albuterol Sulfate Hfa] 2 puff INH Q6H PRN 10/09/20 [History] Amiodarone HCl 400 mg PO DAILY 10/09/20 [History] Ipratropium [Atrovent HFA Inh] 2 puff INH Q4H PRN 10/09/20 [History] Meclizine HCl 25 mg PO Q8H PRN 10/09/20 [History] Pantoprazole [ProTONIX] 40 mg PO DAILY 10/09/20 [History] Potassium Citrate [Potassium Citrate ER] 10 meq PO DAILY 10/09/20 [History] Umeclidinium Brm/Vilanterol Tr [Anoro Ellipta 62.5-25 MCG] 1 puff INH DAILY 10/09/20 [History] Past Medical History HEENT History: Reports: Impaired Vision, Macular Degeneration Cardiovascular History: Reports: Afib, Aneurysm, CAD, High Cholesterol, Hypertension Other Cardiovascular History: implanted heart monitor Respiratory History: Reports: COPD Gastrointestinal History: Reports: Chronic Diarrhea Genitourinary History: Reports: Renal Calculus Musculoskeletal History: Reports: Fracture Other Musculoskeletal History: wrist arms leg fx Neurological History: Reports: CVA Hematologic History: Reports: Anticoagulation Therapy - Infectious Disease History Infectious Disease History: Reports: Chicken Pox, Influenza, Measles, Mumps, Shingles - Past Surgical History Head Surgeries/Procedures: Reports: None HEENT Surgical History: Reports: Other (See Below) Other HEENT Surgeries/Procedures: sinus surgery Cardiovascular Surgical History: Reports: Coronary Artery Bypass, Coronary Artery Stent, Valve Replacement Other Cardiovascular Surgeries/Procedures: stent for abdominal anurysym Respiratory Surgical History: Reports: None GI Surgical History: Reports: Colonoscopy, Hernia Repair/Other Other GI Surgeries/Procedures: abdomenal anurysm Male Surgical History: Reports: Lithotripsy (ESWL) Neurological Surgical History: Reports: None Musculoskeletal Surgical History: Reports: None Dermatological Surgical History: Reports: None Social & Family History - Family History Family Medical History: No Pertinent Family History - Caffeine Use Caffeine Use: Reports: Coffee ED ROS GENERAL - Review of Systems Review Of Systems: See Below Constitutional: Denies: Fever, Chills, Diaphoresis Respiratory: Reports: Shortness of Breath. Denies: Cough Cardiovascular: Reports: Chest Pain, Other (swollen left leg). Denies: Dyspnea on Exertion, Orthopnea Endocrine: Denies: Polydypsia, Polyuria GI/Abdominal: Denies: Abdominal Pain : Reports: No Symptoms Musculoskeletal: Reports: No Symptoms Skin: Reports: No Symptoms Neurological: Reports: No Symptoms ED EXAM, GENERAL - Physical Exam Exam: See Below Exam Limited By: No Limitations General Appearance: Alert, WD/WN, No Apparent Distress Ears: Normal External Exam, Normal Canal Nose: Normal Inspection Throat/Mouth: Normal Inspection, Normal Lips, Normal Teeth Head: Normocephalic Neck: Normal Inspection Respiratory/Chest: Decreased Breath Sounds. No: Rales, Wheezing Cardiovascular: Regular Rate, Rhythm, No Murmur Extremities: Other (swollen left leg) Neurological: Alert, Oriented, Normal Cognition, Normal Gait #1 Interpretation EKG Date: 11/06/20 Time: 19:46 Rhythm: A-Fib Vandiver: Normal P-Wave: Variable QRS: Normal ST-T: Normal QT: Normal Comparison: NA - No Prior EKG EKG Interpretation Comments: Atrial fib with normal rate. Course - Vital Signs Text/Narrative:: The patient was assessed. VS= hypoxic on RA at 86% on admission, improved to 92% on 2L O2. BP and HR normal. RR increased to 22/min. Decreased breath sounds throughout. He is high risk for PE and is not currently on anticoag. CT PE study shows no PE, but he has a large left pleural effusion. BNP is 2300. Trop is normal. CBC and BMP are unremarkable. ECG a.fib with normal rate. Discussed the patient with cardiology and hospitalist service at [facility]. The hospitalist accepted the patient in transfer. The patient will be transported by [facility] ground transport. The patient was given Lasix 40 mg IV in the ED. The patient and his family agree with plan. Last Recorded V/S: Last Vital Signs Temp 36.6 C 11/06/20 18:39 Pulse 86 11/06/20 22:09 Resp 20 11/06/20 22:09 BP 121/64 11/06/20 22:09 Pulse Ox 91 L 11/06/20 22:09 - Orders/Labs/Meds Orders: Active Orders 24 hr Category Date Time Status RT Post Treatment Assessment [RC] Click to Edit Care 11/06/20 19:19 Active Iopamidol [Isovue-370 (76%)] Med 11/06/20 20:15 Active 100 ml IV . DIRECTED Sodium Chloride 0.9% [Normal Saline] 100 ml Med 11/06/20 20:15 Active IV ASDIRECTED EKG 12 Lead [EK] Stat Ther 11/06/20 19:16 Ordered Medication Orders Sodium Chloride (Normal Saline) 100 mls @ 3 mls/sec IV ASDIRECTED GWEN Last Admin: 11/06/20 21:30 Dose: 3 mls/sec Documented by: MABLE Iopamidol (Iopamidol 755 Mg/Ml 100 Ml Bottle) 100 ml IV . DIRECTED GWEN Last Admin: 11/06/20 21:30 Dose: 100 ml Documented by: MABLE Labs: Laboratory Tests 11/06/20 11/06/20 11/06/20 Range/Units 19:17 19:19 19:56 WBC 11.8 H (4.5-11.0) K/uL RBC 3.74 L (4.30-5.90) M/uL Hgb 10.6 L (12.0-15.0) g/dL Hct 34.7 L (40.0-54.0) % MCV 93 (80-98) fL MCH 28 (27-31) pg MCHC 31 L (32-36) % Plt Count 247 (150-400) K/uL Neut % (Auto) 78.8 H (36-66) % Lymph % (Auto) 7.1 L (24-44) % [place] % (Auto) 11.1 H (2-6) % Eos % (Auto) 2.7 (2-4) % Baso % (Auto) 0.3 (0-1) % Sodium (140-148) mmol/L Potassium (3.6-5.2) mmol/L Chloride (100-108) mmol/L Carbon Dioxide (21-32) mmol/L Anion Gap (5.0-14.0) mmol/L BUN (7-18) mg/dL Creatinine (0.8-1.3) mg/dL Est Cr Clr Drug Dosing mL/min Estimated GFR (MDRD) (>60) Glucose (74-106) mg/dL Calcium (8.5-10.1) mg/dL Troponin I 0.017 (0.000-0.056) ng/mL NT-Pro-B Natriuret Pep (5-450) pg/mL SARS-CoV-2 RNA (YOVANI) Negative (NEGATIVE) 11/06/20 11/06/20 Range/Units 19:56 21:20 WBC (4.5-11.0) K/uL RBC (4.30-5.90) M/uL Hgb (12.0-15.0) g/dL Hct (40.0-54.0) % MCV (80-98) fL MCH (27-31) pg MCHC (32-36) % Plt Count (150-400) K/uL Neut % (Auto) (36-66) % Lymph % (Auto) (24-44) % [place] % (Auto) (2-6) % Eos % (Auto) (2-4) % Baso % (Auto) (0-1) % Sodium 142 (140-148) mmol/L Potassium 3.4 L (3.6-5.2) mmol/L Chloride 105 (100-108) mmol/L Carbon Dioxide 28 (21-32) mmol/L Anion Gap 12.4 (5.0-14.0) mmol/L BUN 13 (7-18) mg/dL Creatinine 1.3 (0.8-1.3) mg/dL Est Cr Clr Drug Dosing 48.27 mL/min Estimated GFR (MDRD) 53 L (>60) Glucose 103 (74-106) mg/dL Calcium 8.3 L (8.5-10.1) mg/dL Troponin I 0.021 (0.000-0.056) ng/mL NT-Pro-B Natriuret Pep 2368 H (5-450) pg/mL SARS-CoV-2 RNA (YOVANI) (NEGATIVE) Meds: Medications Generic Name Dose Route Start Last Admin Trade Name Freq PRN Reason Stop Dose Admin Sodium Chloride 100 mls @ 3 mls/sec 11/06/20 20:15 11/06/20 21:30 Normal Saline IV 3 mls/sec ASDIRECTED GWEN Administration Iopamidol 100 ml 11/06/20 20:15 11/06/20 21:30 Iopamidol 755 Mg/Ml 100 Ml Bottle IV 100 ml . DIRECTED GWEN Administration Discontinued Medications Generic Name Dose Route Start Last Admin Trade Name Freq PRN Reason Stop Dose Admin Albuterol 0 gm 11/06/20 19:18 11/06/20 19:58 Albuterol 8 Gm Inhaler INH 11/06/20 19:19 4 puff ONETIME ONE Administration Aspirin 324 mg 11/06/20 19:13 11/06/20 19:19 Aspirin 81 Mg Tab.Chew PO 11/06/20 19:14 324 mg ONETIME ONE Administration Furosemide 40 mg 11/06/20 22:10 11/06/20 22:23 Furosemide 40 Mg/4 Ml Vial IVPUSH 11/06/20 22:11 40 mg ONETIME ONE Administration Sodium Chloride 10 ml 11/06/20 20:10 11/06/20 21:31 Sodium Chloride 0.9% 10 Ml Syringe FLUSH 11/06/20 20:11 10 ml ONETIME ONE Administration Departure - Departure Time of Disposition: 22:35 Disposition: DC/Tfer to [facility] Reason for Transfer *Q: Other (Transfer to higher level of Care) Condition: Fair Clinical Impression: CHF (congestive heart failure) Referrals: Shayne Wheatley MD [Primary Care Provider] - Forms: ED Department Discharge Sepsis Event Note (ED) - Focused Exam Vital Signs: Vital Signs Temp Pulse Resp BP Pulse Ox 11/06/20 22:09 86 20 121/64 91 L 11/06/20 19:23 67 14 136/80 91 L 11/06/20 18:39 36.6 C 72 22 H 136/75 100 11/06/20 18:36 36.6 C 72 22 H 136/75 100 - My Orders Last 24 Hours: My Active Orders 11/06/20 19:16 EKG 12 Lead [EK] Stat 11/06/20 19:19 RT Post Treatment Assessment [RC] Click to Edit 11/06/20 20:15 Iopamidol [Isovue-370 (76%)] 100 ml IV . DIRECTED Sodium Chloride 0.9% [Normal Saline] 100 ml IV ASDIRECTED - Assessment/Plan Last 24 Hours: My Active Orders 11/06/20 19:16 EKG 12 Lead [EK] Stat 11/06/20 19:19 RT Post Treatment Assessment [RC] Click to Edit 11/06/20 20:15 Iopamidol [Isovue-370 (76%)] 100 ml IV . DIRECTED Sodium Chloride 0.9% [Normal Saline] 100 ml IV ASDIRECTED
[2020-11-06] MEDS ORDERED: Sodium Chloride 0.9% 100 ML IV SCH (20:15)
[2020-11-06] MEDS: Sodium Chloride 0.9% 10 ML Syringe FLUSH ONE ×2 (20:15→21:31)
[2020-11-06] MEDS ORDERED: Iopamidol 755 Mg/ML 100 ML Bottle IV SCH (20:15)
--- NOTE | 2020-11-06 21:59 | CRLCT ---
For Patients: As a result of the Century Cures Act, medical imaging exams and procedure reports are released immediately into your electronic medical record. You may view this report before your referring provider. If you have questions, please contact your health care provider. INDICATION: Dyspnea. Status post open heart surgery September 26. High probability of pulmonary embolism. COMPARISON: CT pulmonary angiogram from 11/12/2016 TECHNIQUE: CT examination of the chest was performed with the uneventful intravenous administration of 80 cc of Isovue 370 while 2 mm thick axial sections were obtained through the pulmonary arteries. Please note that all CT scans at this facility use dose modulation, iterative reconstruction, and/or weight-based dosing when appropriate to reduce radiation dose to as low as reasonably achievable. FINDINGS: : There is no sign of pulmonary embolism, with normal enhancement and branching of the pulmonary arteries. There is a new large left pleural effusion, with pleural fluid occupying approximately 50 percent of the thoracic volume. This results in complete atelectasis of the left lower lobe and moderate atelectasis of the posterior left upper lobe. The mediastinum is not shifted towards the right. The right lung has minimal patchy atelectasis in the posterior right lung base. The posterior portions of both right upper and lower lobes show no change in mild patchy reticular fibrosis consistent with previous inflammatory disease. There is stable mild patchy ground-glass pulmonary fibrosis throughout the rest of the chest. There is stable moderate upper lobe centrilobular emphysema. There is no sign of mediastinal or hilar mass or adenopathy. There are new sternal wires from median sternotomy. There is a new aortic valve prosthesis. Again seen is heavy left main and triple-vessel coronary calcification. There is a new mild pericardial effusion. The heart remains normal in size. There is age appropriate appearance of the thoracic aorta and ascending great vessels. There is no sign of supraclavicular or axillary mass or adenopathy. The visualized superior liver, spleen, and right adrenal are normal in appearance. There is a stable old mild T7 compression fracture. There is no sign of any additional compression fractures. There is mild, age-appropriate hypertrophic change scattered throughout the thoracic spine. IMPRESSION: No sign of pulmonary embolism. New large left pleural effusion with complete atelectasis of the left lower lobe and moderate atelectasis of the posterior left upper lobe. No sign of mediastinal shift towards the right. New mild pericardial effusion. Heart remains normal in size. New changes of median sternotomy and new aortic valve prosthesis ring. Stable mild patchy diffuse ground-glass pulmonary fibrosis with moderate upper lobe centrilobular emphysema. Please note that all CT scans at this facility use dose modulation, iterative reconstruction, and/or weight-based dosing when appropriate to reduce radiation dose to as low as reasonably achievable. Dictated by Juan Moseley MD @ 11/06/2020 9:58:03 PM (Electronically Signed)
[2020-11-06] MEDS ORDERED: Furosemide 40 MG/4 ML VIAL IVPUSH ONE (22:10)
[2020-11-07 00:11] VITALS: BP 120/75; PULSE 86
== END 2020-11-07 00:32 ==
LOC: JP.ED 17:27
DX: I11.0 Hypertensive heart disease with heart failure (principal); I50.9 Heart failure, unspecified; I48.91 Unspecified atrial fibrillation; I25.10 Atherosclerotic heart disease of native coronary artery without angina pectoris; E78.00 Pure hypercholesterolemia, unspecified; J44.9 Chronic obstructive pulmonary disease, unspecified; Z79.899 Other long term (current) drug therapy; Z79.82 Long term (current) use of aspirin; Z79.01 Long term (current) use of anticoagulants; Z20.822 Contact with and (suspected) exposure to COVID-19
CPT/HCPCS: 36415; 71275; 80048; 83880; 84484; 85025; 93005; 94640; 96374; 99285; A9270; J1940; Q9967; U0002

== ENCOUNTER 2020-12-29 08:21 | Day surgery (SDC) | payer MEDICARE, BC ==
[~2020-12-29 08:21] MED LIST changes: -Bupivacaine 0.5% 30 ML SDV ONE; +Propofol 200 MG/20 ML SDV ONE; +fentaNYL 100 MCG/2 ML SDV ONE
[2020-12-29] MEDS ORDERED: Sodium Chloride 0.9% 1,000 ML IV SCH (09:00)
[2020-12-29] MEDS ORDERED: ceFAZolin 1 GM in Premix Bag 1 BAG IV ONE (09:10)
[2020-12-29 11:41] VITALS: BP 95/55; PULSE 68
--- NOTE | 2020-12-29 13:57 | OR ---
DATE OF PROCEDURE: 12/29/2020 SURGEON: Abhinav Herrera MD PROCEDURE PERFORMED: Esophagogastroduodenoscopy. FINDINGS/PATHOLOGY: 1. Area of ulceration in gastric antrum (biopsied using cold biopsy forceps). 2. Clips noted in gastric antrum/gastric body x1 consistent with previous clipping of bleed. 3. Irregular Z-line concerning for reflux disease ( multiple in all 4 quadrants using cold biopsy forceps). COMPLICATIONS: None. WIRE BOUND BOX MACHINE HELPER: None. ANESTHESIA: MAC. PREOPERATIVE DIAGNOSIS: History of gastric bleeding requiring followup of procedure. Of note, this was performed in a different facility. POSTOPERATIVE DIAGNOSIS: History of gastric bleeding requiring followup of procedure. Of note, this was performed in a different facility. PROCEDURE IN DETAIL: The patient was placed in the left lateral decubitus position. The EGD scope was introduced and advanced atraumatically to the second part of the duodenum. No evidence of duodenitis or ulceration was noted. No evidence of old or new blood. Within the stomach itself, the patient had an area of ulceration which was irregular and concerning, requiring biopsy. This was biopsied x1 using cold biopsy forceps. No abnormalities on retroflex. The patient had a Z-line which was irregular concerning for reflux disease or other and was biopsied in all 4 quadrants using cold biopsy forceps. The remainder of the esophagus was inspected. No other abnormalities were noted. The patient tolerated the procedure well. Abhinav Herrera MD /[id number]
== END 2020-12-29 11:55 | disposition home or self-care (01) ==
LOC: JP.SDS 08:21
PROVIDERS: ATTEND Surgery
DX: K29.70 Gastritis, unspecified, without bleeding (principal); K25.9 Gastric ulcer, unspecified as acute or chronic, without hemorrhage or perforation; K22.89 Other specified disease of esophagus; J44.9 Chronic obstructive pulmonary disease, unspecified; I10 Essential (primary) hypertension
CPT/HCPCS: 43239; J0690; J2704; J3010

== ENCOUNTER 2021-01-04 19:22 | Emergency (ER) | payer MEDICARE, BC ==
[2021-01-04 19:31] VITALS: BP 133/66; PULSE 79
--- NOTE | 2021-01-04 19:54 | CRLCT ---
For Patients: As a result of the Century Cures Act, medical imaging exams and procedure reports are released immediately into your electronic medical record. You may view this report before your referring provider. If you have questions, please contact your health care provider. INDICATION: Right-sided weakness and numbness TECHNIQUE: Head CT without contrast. COMPARISON: March 06, 2020 FINDINGS: CSF spaces: Within normal limits for age. Brain parenchyma: There are nonspecific low attenuation white matter changes consistent with chronic microvascular disease. No sign of mass, hemorrhage, or midline shift. 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 Skull base and calvarium: The visualized paranasal sinuses and mastoid air cells demonstrate no acute or significant findings. The visualized orbits are grossly unremarkable. No skull fractures. There is intracranial atherosclerosis. IMPRESSION: 1. No acute findings. 2. Nonspecific white matter disease, typical of chronic microvascular disease. 3. 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 Please note that all CT scans at this facility use dose modulation, iterative reconstruction, and/or weight-based dosing when appropriate to reduce radiation dose to as low as reasonably achievable. Dictated by Lynette Armando MD @ 01/04/2021 7:52:23 PM (Electronically Signed)
--- NOTE | 2021-01-04 19:55 | EDM.PDOC ---
ED HPI GENERAL MEDICAL PROBLEM - General Chief Complaint: Neuro Symptoms/Deficits Stated Complaint: POSSIBLE STROKE Time Seen by Provider: 01/04/21 19:40 Source of Information: Reports: Patient, Family History Limitations: Reports: No Limitations - History of Present Illness INITIAL COMMENTS - FREE TEXT/NARRATIVE: 80-year-old male who 1-1/2 hours ago developed left arm numbness, slight aphasia and some slight left leg numbness and weakness. He was on Eliquis up until 2 weeks ago when he had an aortic aneurysm clipped, he is just on a low-dose aspirin now. Symptoms have almost completely resolved by the time he got to the hospital other than some slight left arm numbness. No headache, visual complaints, chest pain, abdominal pain, nausea or vomiting. Claims that his head just feels "off". Interestingly he says he was having trouble talking, but when his arrived she said that everyone thought he sounded fine. He also went up and down the stairs while he was having symptoms but said he was feeling unsteady. Onset: Sudden Location: Reports: Other (Left side arm and leg) Associated Symptoms: Reports: Malaise. Denies: Confusion, Cough, Headaches - Related Data Allergies Allergy/AdvReac Type Severity Reaction Status Date / Time Beta-Blockers Allergy Other Verified 12/29/20 08:45 (Beta-Adrenergic Bloc carvedilol Allergy Shortness Verified 12/29/20 08:45 of Breath sotalol Allergy Shortness Verified 12/29/20 08:45 of Breath codeine AdvReac Nausea Verified 12/29/20 08:45 Home Meds: Home Meds Aspirin [Adult Low Dose Aspirin EC] 81 mg PO DAILY 09/04/13 [History] Glucosam/Chondr/Collagn/Hyalur [Glucosamine & Chondroitin Cap] 1 each PO DAILY 09/04/13 [History] Diltiazem [Cardizem CD] 120 mg PO DAILY 06/29/19 [History] Furosemide [Lasix] 40 mg PO DAILY 06/29/19 [History] Rosuvastatin [Crestor] 20 mg PO BEDTIME 06/29/19 [History] Pantoprazole [ProTONIX] 40 mg PO BID 10/09/20 [History] Umeclidinium Brm/Vilanterol Tr [Anoro Ellipta 62.5-25 MCG] 1 puff INH DAILY 10/09/20 [History] Spironolactone [Aldactone] 25 mg PO DAILY 11/17/20 [History] lisinopriL [Lisinopril] 2.5 mg PO DAILY 11/17/20 [History] Past Medical History HEENT History: Reports: Impaired Vision, Macular Degeneration Cardiovascular History: Reports: Afib, Aneurysm, CAD, High Cholesterol, Hypertension Other Cardiovascular History: implanted heart monitor Respiratory History: Reports: COPD, Other (See Below) Other Respiratory History: pleural effusion Gastrointestinal History: Reports: Chronic Diarrhea Genitourinary History: Reports: Renal Calculus Musculoskeletal History: Reports: Fracture Other Musculoskeletal History: wrist arms leg fx Neurological History: Reports: CVA Hematologic History: Reports: Anticoagulation Therapy - Infectious Disease History Infectious Disease History: Reports: Chicken Pox, Influenza, Measles, Shingles - Past Surgical History Head Surgeries/Procedures: Reports: None HEENT Surgical History: Reports: Other (See Below) Other HEENT Surgeries/Procedures: sinus surgery Cardiovascular Surgical History: Reports: Coronary Artery Bypass, Coronary Artery Stent, Valve Replacement Other Cardiovascular Surgeries/Procedures: stent for abdominal anurysym Respiratory Surgical History: Reports: Thoracentesis GI Surgical History: Reports: Colonoscopy, Hernia Repair/Other Other GI Surgeries/Procedures: abdomenal aneurysm - stent Male Surgical History: Reports: Lithotripsy ([facility]) Neurological Surgical History: Reports: None Musculoskeletal Surgical History: Reports: None Dermatological Surgical History: Reports: None Social & Family History - Family History Family Medical History: No Pertinent Family History - Caffeine Use Caffeine Use: Reports: None, Coffee Other Caffeine Use: decaf coffee ED ROS GENERAL - Review of Systems Review Of Systems: See Below Constitutional: Denies: Fever, Chills, Malaise HEENT: Denies: Vision Change Respiratory: Denies: Shortness of Breath Cardiovascular: Denies: Chest Pain GI/Abdominal: Denies: Abdominal Pain, Nausea, Vomiting Skin: Reports: No Symptoms Neurological: Reports: Dizziness Psychiatric: Reports: No Symptoms ED EXAM, GENERAL - Physical Exam Exam: See Below Exam Limited By: No Limitations General Appearance: Alert, No Apparent Distress Eye Exam: Bilateral Eye: EOMI, Normal Inspection Head: Atraumatic Neck: Supple, Non-Tender. No: Carotid Bruit Respiratory/Chest: No Respiratory Distress, Lungs Clear Cardiovascular: Regular Rate, Rhythm, Extra Beats GI/Abdominal: Soft, Non-Tender Neurological: Alert, Oriented, No Motor/Sensory Deficits, Other (Strength in the arms and legs are symmetric and full, facial muscles are symmetric, no sensory defect reproducible) Psychiatric: Normal Affect, Normal Mood Skin Exam: Warm, Dry Course - Vital Signs Last Recorded V/S: Last Vital Signs Temp 98.0 F 01/04/21 20:00 Pulse 79 01/04/21 20:00 Resp 19 01/04/21 20:00 BP 133/66 01/04/21 20:00 Pulse Ox 96 01/04/21 20:00 - Re-Assessments/Exams Free Text/Narrative Re-Assessment/Exam: 01/04/21 20:[address] showed no acute findings, patient admits that he feels normal now except he just feels a little "off". His thinks he seems fine. He has an appointment with his nurse esthetician tomorrow morning, he can discuss with him at that time if he can restart Eliquis but I do not have any reason to consider transfer or hospitalization at this time. If symptoms recur and are persistent he can return. Departure - Departure Time of Disposition: 20:25 Disposition: Home, Self-Care 01 Clinical Impression: TIA (transient ischemic attack), Paresthesia of left arm - Discharge Information Instructions: Paresthesia, Transient Ischemic Attack, [id number] Referrals: Shayne Wheatley MD [Primary Care Provider] - Forms: ED Department Discharge Care Plan Goals: Continue your current medications, if symptoms recur and are persistent consider taking a couple of extra aspirin and returning for more evaluation. Otherwise recheck tomorrow morning as scheduled and discuss whether you are able to restart your Eliquis. Sepsis Event Note (ED) - Focused Exam Vital Signs: Vital Signs Temp Pulse Resp BP Pulse Ox 01/04/21 20:00 98.0 F 79 19 133/66 96 01/04/21 19:28 98.0 F 79 19 133/66 96
== END 2021-01-04 20:37 | disposition home or self-care (01) ==
LOC: JP.ED 19:22
DX: G45.9 Transient cerebral ischemic attack, unspecified (principal); I48.91 Unspecified atrial fibrillation; I25.10 Atherosclerotic heart disease of native coronary artery without angina pectoris; E78.00 Pure hypercholesterolemia, unspecified; I10 Essential (primary) hypertension; J44.9 Chronic obstructive pulmonary disease, unspecified; Z86.73 Personal history of transient ischemic attack (TIA), and cerebral infarction without residual deficits; Z88.8 Allergy status to other drugs, medicaments and biological substances; Z88.5 Allergy status to narcotic agent; Z79.82 Long term (current) use of aspirin; Z79.899 Other long term (current) drug therapy
CPT/HCPCS: 70450; 99285-25

== ENCOUNTER 2021-02-21 21:59 | Emergency (ER) | payer MEDICARE, BC ==
[2021-02-21] MEDS ORDERED: Proparacaine 0.5% Ophth Soln 15 ML Bottle EYERT ONE (22:15)
[2021-02-21 22:56] VITALS: BP 105/77; PULSE 58
[2021-02-21] MEDS ORDERED: Erythromycin Base 0.5% Ophth Oint 1 GM Tube EYERT SCH (23:07)
== END 2021-02-21 23:35 | disposition home or self-care (01) ==
LOC: JP.ED 21:59
DX: S05.01XA Injury of conjunctiva and corneal abrasion without foreign body, right eye, initial encounter (principal); H11.31 Conjunctival hemorrhage, right eye; I10 Essential (primary) hypertension; J44.9 Chronic obstructive pulmonary disease, unspecified; Z88.5 Allergy status to narcotic agent; Z88.8 Allergy status to other drugs, medicaments and biological substances; Z79.82 Long term (current) use of aspirin; Z79.899 Other long term (current) drug therapy; X58.XXXA Exposure to other specified factors, initial encounter
CPT/HCPCS: 99283; A9270

== ENCOUNTER 2021-03-09 16:54 | Emergency (ER) | payer MEDICARE, BC ==
[2021-03-09 19:27] VITALS: BP 116/73; PULSE 52
== END 2021-03-09 20:57 | disposition home or self-care (01) ==
LOC: JP.ED 16:54
DX: E87.5 Hyperkalemia (principal); I48.91 Unspecified atrial fibrillation; I25.10 Atherosclerotic heart disease of native coronary artery without angina pectoris; E78.00 Pure hypercholesterolemia, unspecified; I10 Essential (primary) hypertension; J44.9 Chronic obstructive pulmonary disease, unspecified; Z88.8 Allergy status to other drugs, medicaments and biological substances; Z88.5 Allergy status to narcotic agent; Z79.01 Long term (current) use of anticoagulants; Z79.82 Long term (current) use of aspirin; Z79.899 Other long term (current) drug therapy
CPT/HCPCS: 36415; 80048; 81001; 83735; 84100; 93005; 99285-25

== ENCOUNTER 2021-04-24 01:45 | Emergency (ER) | payer MEDICARE, BC ==
[2021-04-24] MEDS ORDERED: Sodium Chloride 0.9% 10 ML Syringe FLUSH PRN (01:58)
[2021-04-24] MEDS ORDERED: Pantoprazole 40 MG Vial IVPUSH ONE (02:29)
[2021-04-24 02:46] LABS: CORONAVIRUS COVID-19 NAA NEGATIVE (NEGATIVE)
[2021-04-24] MEDS ORDERED: Propofol 200 MG/20 ML SDV ONE (03:32)
[2021-04-24 05:01] VITALS: BP 83/62; PULSE 93
== END 2021-04-24 05:34 ==
LOC: JP.ED 01:45
DX: I47.2 Ventricular tachycardia (principal); I49.3 Ventricular premature depolarization; I13.0 Hypertensive heart and chronic kidney disease with heart failure and stage 1 through stage 4 chronic kidney disease, or unspecified chronic kidney disease; N18.31 Chronic kidney disease, stage 3a; I50.22 Chronic systolic (congestive) heart failure; I48.0 Paroxysmal atrial fibrillation; I25.10 Atherosclerotic heart disease of native coronary artery without angina pectoris; R11.10 Vomiting, unspecified; D68.9 Coagulation defect, unspecified; K92.1 Melena; E78.00 Pure hypercholesterolemia, unspecified; J44.9 Chronic obstructive pulmonary disease, unspecified; Z86.73 Personal history of transient ischemic attack (TIA), and cerebral infarction without residual deficits; Z95.5 Presence of coronary angioplasty implant and graft; Z88.5 Allergy status to narcotic agent; Z88.8 Allergy status to other drugs, medicaments and biological substances; Z79.82 Long term (current) use of aspirin; Z79.01 Long term (current) use of anticoagulants; Z79.899 Other long term (current) drug therapy; Z87.891 Personal history of nicotine dependence; Z20.822 Contact with and (suspected) exposure to COVID-19
CPT/HCPCS: 0241U; 36415; 71046; 80048; 80076; 82270; 83735; 83880; 84443; 84484; 85025; 85610; 85730; 86850; 86900; 86901; 92960; 93005; 93010; 96374; 99284; 99285; C9113; J2704

== ENCOUNTER 2022-04-05 13:12 | Emergency (ER) | payer MEDICARE, BC ==
[2022-04-05 14:46] VITALS: BP 136/75; PULSE 65
== END 2022-04-05 16:44 | disposition home or self-care (01) ==
LOC: JP.ED 13:12
DX: K92.1 Melena (principal); I48.91 Unspecified atrial fibrillation; I25.10 Atherosclerotic heart disease of native coronary artery without angina pectoris; E78.00 Pure hypercholesterolemia, unspecified; I10 Essential (primary) hypertension; J44.9 Chronic obstructive pulmonary disease, unspecified; Z87.891 Personal history of nicotine dependence; Z79.01 Long term (current) use of anticoagulants; Z79.82 Long term (current) use of aspirin; Z79.899 Other long term (current) drug therapy; Z88.8 Allergy status to other drugs, medicaments and biological substances; Z88.5 Allergy status to narcotic agent
CPT/HCPCS: 36415; 85018; 99284

== ENCOUNTER 2022-04-21 21:30 | Emergency (ER) | payer MEDICARE, BC ==
[2022-04-21] MEDS ORDERED: Sodium Chloride 0.9% 10 ML Syringe FLUSH PRN (21:46)
[2022-04-21] MEDS ORDERED: LORazepam 2 MG/ML SDV IVPUSH ONE (21:47)
[2022-04-21] MEDS ORDERED: Lactated Ringers 1,000 ML IV SCH (22:00)
[2022-04-21 22:23] LABS: ESTIMATED GFR 46 mL/min (>60); TROPONIN I HIGH SENSITIVITY 7.4 pg/mL (<=60.3)
[2022-04-21] MEDS: Lactated Ringers 1,000 ML IV ONE ×2 (23:06)
[2022-04-21 23:10] VITALS: BP 165/89; PULSE 82
== END 2022-04-22 00:15 | disposition home or self-care (01) ==
LOC: JP.ED 21:30
DX: K52.9 Noninfective gastroenteritis and colitis, unspecified (principal); J44.9 Chronic obstructive pulmonary disease, unspecified; I25.10 Atherosclerotic heart disease of native coronary artery without angina pectoris; E78.00 Pure hypercholesterolemia, unspecified; I10 Essential (primary) hypertension; Z86.16 Personal history of COVID-19; Z86.73 Personal history of transient ischemic attack (TIA), and cerebral infarction without residual deficits; Z88.5 Allergy status to narcotic agent; Z88.8 Allergy status to other drugs, medicaments and biological substances; Z79.82 Long term (current) use of aspirin; Z79.899 Other long term (current) drug therapy; Z79.01 Long term (current) use of anticoagulants
CPT/HCPCS: 36415; 80053; 81001; 83605; 83690; 84484; 85025; 96361; 96374; 99284; J2060; J7120; 99283

== ENCOUNTER 2022-08-24 08:35 | Emergency (ER) | payer MEDICARE, BC ==
[2022-08-24 08:53] VITALS: BP 159/87; PULSE 69
== END 2022-08-24 10:47 | disposition home or self-care (01) ==
LOC: JP.ED 08:35
DX: K20.80 Other esophagitis without bleeding (principal); Z88.8 Allergy status to other drugs, medicaments and biological substances; Z87.891 Personal history of nicotine dependence
CPT/HCPCS: 99283

== ENCOUNTER 2023-01-12 10:39 | Emergency (ER) | payer MEDICARE, BC ==
[2023-01-12 10:52] VITALS: BP 169/84; PULSE 84
[2023-01-12 11:26] LABS: BASOPHILS ABSOLUTE AUTO 0.04 K/uL (0.00-0.10); BASOPHILS PERCENT AUTO 0.4 % (0.1-1.3); EOSINOPHILS ABSOLUTE AUTO 0.14 K/uL (0.00-0.40); EOSINOPHILS PERCENT AUTO 1.3 % (0.0-5.4); HEMATOCRIT 43.4 % (38.4-49.7); HEMOGLOBIN 14.1 g/dL (12.9-16.9); IMMATURE GRAN ABSOLUTE AUTO 0.03 K/uL (0.00-0.23); IMMATURE GRAN PERCENT AUTO 0.3 % (0.0-0.7); LYMPHOCYTES ABSOLUTE AUTO 1.19 K/uL (0.8-3.3); LYMPHOCYTES PERCENT AUTO 11.1 % (11.4-47.7); MEAN CORPUSCULAR HEMOGLOBIN 30.7 pg (31.6-35.5); MEAN CORPUSCULAR HGB CONC 32.5 g/dL (31.6-35.5); MEAN CORPUSCULAR VOLUME 94.3 fL (81.4-99.0); MONOCYTES ABSOLUTE AUTO 1.04 K/uL (0.20-0.90); MONOCYTES PERCENT AUTO 9.7 % (3.3-12.6); NEUTROPHILS ABSOLUTE AUTO 8.28 K/uL (1.0-7.6); NEUTROPHILS PERCENT AUTO 77.2 % (40.0-78.1); PLATELET COUNT,PLT 163 K/uL (130-375); WHITE BLOOD CELL COUNT,WBC 10.7 K/uL (3.2-11.0)
[2023-01-12 11:38] LABS: ANION GAP 9.8 mmol/L (5.0-14.0); CALCIUM 8.8 mg/dL (8.5-10.1); CREATININE 1.2 mg/dL (0.8-1.3); EST CRCL DRUG DOSING (CG) 47.2 mL/min; POTASSIUM,K 3.8 mmol/L (3.6-5.2); TROPONIN I HIGH SENSITIVITY 8.7 pg/mL (<=60.3)
== END 2023-01-12 14:44 | disposition home or self-care (01) ==
LOC: JP.ED 10:39
DX: R07.81 Pleurodynia (principal); I10 Essential (primary) hypertension; E78.00 Pure hypercholesterolemia, unspecified; I25.10 Atherosclerotic heart disease of native coronary artery without angina pectoris; J44.9 Chronic obstructive pulmonary disease, unspecified; Z95.5 Presence of coronary angioplasty implant and graft; Z79.82 Long term (current) use of aspirin; Z79.01 Long term (current) use of anticoagulants; Z86.16 Personal history of COVID-19; Z86.73 Personal history of transient ischemic attack (TIA), and cerebral infarction without residual deficits; Z88.5 Allergy status to narcotic agent; Z88.8 Allergy status to other drugs, medicaments and biological substances; Z79.899 Other long term (current) drug therapy
CPT/HCPCS: 36415; 70450; 71250; 80048; 84484; 85025; 93005; 99285

== ENCOUNTER 2023-12-11 03:16 | Inpatient (IN) | payer MEDICARE, BC ==
[2023-12-11 03:51] LABS: BASOPHILS PERCENT AUTO 0.1 % (0.1-1.3); EOSINOPHILS ABSOLUTE AUTO 0.06 K/uL (0.00-0.40); EOSINOPHILS PERCENT AUTO 0.4 % (0.0-5.4); HEMATOCRIT 41.4 % (38.4-49.7); HEMOGLOBIN 13.6 g/dL (12.9-16.9); IMMATURE GRAN ABSOLUTE AUTO 0.07 K/uL (0.00-0.23); IMMATURE GRAN PERCENT AUTO 0.4 % (0.0-0.7); LYMPHOCYTES ABSOLUTE AUTO 0.56 K/uL (0.8-3.3); LYMPHOCYTES PERCENT AUTO 3.5 % (11.4-47.7); MEAN CORPUSCULAR HEMOGLOBIN 28.9 pg (31.6-35.5); MEAN CORPUSCULAR HGB CONC 32.9 g/dL (31.6-35.5); MEAN CORPUSCULAR VOLUME 88.1 fL (81.4-99.0); MONOCYTES PERCENT AUTO 9.4 % (3.3-12.6); NEUTROPHILS ABSOLUTE AUTO 13.75 K/uL (1.0-7.6); NEUTROPHILS PERCENT AUTO 86.2 % (40.0-78.1); PLATELET COUNT,PLT 169 K/uL (130-375)
[2023-12-11 03:57] LABS: BASOPHILS ABSOLUTE AUTO 0.02 K/uL (0.00-0.10)
[2023-12-11] MEDS: fentaNYL 50 MCG/ML SDV IVPUSH ONE (04:00)
[2023-12-11 04:10] LABS: A/G RATIO 0.9 (1.2-2.2); ALANINE AMINOTRANSFERASE,ALT 27 U/L (12-78); ALBUMIN 3.4 g/dL (3.4-5.0); ALKALINE PHOSPHATASE 108 U/L (46-116); ASPARTATE AMNIOTRANSFERASE,AST 25 U/L (15-37); BILIRUBIN TOTAL 0.8 mg/dL (0.2-1.0); BLOOD UREA NITROGEN,BUN 18 mg/dL (7-18); CALCIUM 9.6 mg/dL (8.5-10.1); CARBON DIOXIDE,CO2 29 mmol/L (21-32); CHLORIDE,CL 100 mmol/L (100-108); CREATININE 1.4 mg/dL (0.8-1.3); EST CRCL DRUG DOSING (CG) 41.04 mL/min; ESTIMATED GFR 50 mL/min (>60); GLUCOSE RANDOM 119 mg/dL (74-106); POTASSIUM,K 3.3 mmol/L (3.6-5.2); PROTEIN TOTAL,TP 7.4 g/dL (6.4-8.2); SODIUM,NA 139 mmol/L (140-148); TROPONIN I HIGH SENSITIVITY 5.3 pg/mL (<=60.3)
[2023-12-11 04:15] LABS: ANION GAP 13.3 mmol/L (5.0-14.0)
[2023-12-11] MEDS: Iopamidol 612 MG/ML 100 ML Bottle IV STA (05:05)
[2023-12-11] MEDS: Sodium Chloride 0.9% 60 ML IV STA (05:05)
[2023-12-11] MEDS: fentaNYL 100 MCG/2 ML SDV IVPUSH ONE (06:25)
[2023-12-11] MEDS ORDERED: fentaNYL 50 MCG/ML SDV IVPUSH PRN (07:34)
[2023-12-11] MEDS ORDERED: Naloxone 0.4 MG/ML SDV IVPUSH PRN ×2 (07:34→12:16)
[2023-12-11] MEDS: Sodium Chloride 0.9% 500 ML IV ONE ×2 (08:15→11:00)
[2023-12-11] MEDS: cefTRIAXone 1 GM in Sodium Chloride 0.9% 50 ML IV ONE (08:15)
[2023-12-11] MEDS: Sodium Chloride 0.9% 1,000 ML IV ONE (08:19)
[2023-12-11 08:20] LABS: APPEARANCE,URINE CLEAR (CLEAR); BILIRUBIN,URINE NEGATIVE (NEGATIVE); COLOR,URINE YELLOW (YELLOW); GLUCOSE,URINE 500 mg/dL (NEGATIVE); KETONES,URINE TRACE mg/dL (NEGATIVE); LEUKOCYTE ESTERASE,URINE NEGATIVE (NEGATIVE); NITRITE,URINE NEGATIVE (NEGATIVE); OCCULT BLOOD,URINE SMALL (NEGATIVE); PROTEIN,URINE TRACE mg/dL (NEGATIVE)
[2023-12-11 08:27] LABS: RBC,URINE 0-5 (0-5)
[2023-12-11 08:28] LABS: AMORPHOUS SEDIMENT,URINE RARE; BACTERIA,URINE NOT SEEN; EPITHELIAL CELLS,URINE NOT SEEN; MUCUS,URINE NOT SEEN; WBC,URINE NOT SEEN (0-5)
[2023-12-11] MEDS ORDERED: Ondansetron 4 MG/2 ML SDV IV PRN (12:16)
[2023-12-11] MEDS ORDERED: Acetaminophen 325 MG Tab PO PRN (12:16)
[2023-12-11] MEDS ORDERED: Ondansetron 4 MG Tab.DIS PO PRN (12:16)
[2023-12-11] MEDS ORDERED: FLUTICASONE IN SCH (12:16)
[2023-12-11] MEDS ORDERED: Sennosides/Docusate Sodium 50-8.6 MG Tab PO PRN (12:16)
[2023-12-11] MEDS ORDERED: [UNRECOGNIZED DRUG - OTHER] IN SCH (12:16)
[2023-12-11] MEDS ORDERED: Albuterol 0.083% 2.5 MG/3 ML Neb Soln NEB PRN (12:16)
[2023-12-11] MEDS ORDERED: SALMETEROL IN SCH (12:16)
[2023-12-11] MEDS ORDERED: fentaNYL 100 MCG/2 ML SDV IVPUSH PRN (12:16)
[2023-12-11] MEDS ORDERED: Magnesium Hydroxide 400 MG/5 ML Susp 30 ML Cup PO PRN (12:16)
[2023-12-11] MEDS: metroNIDAZOLE/Normal Saline 500 MG in Premix Bag 1 BAG IV SCH (13:25)
[2023-12-11] MEDS: methylPREDNISolone Sodium Succinate 125 MG/2 ML SDV IVPUSH ONE (13:25)
[2023-12-11] MEDS: Diltiazem 120 MG Cap.CD PO SCH (13:40)
[2023-12-11] MEDS: Furosemide 40 MG Tab PO SCH ×2 (13:40→13:41)
[2023-12-11] MEDS ORDERED: Furosemide 20 MG Tab PO SCH (14:00)
[2023-12-11] MEDS: Albuterol/Ipratropium 3.0-0.5 MG/3 ML Neb Soln NEB SCH (14:21)
[2023-12-11] MEDS: MEXILETINE HCL 150 MG PO SCH (17:16)
[2023-12-11] MEDS: cefTRIAXone 2 GM in Water For Injection, Sterile 20 ML IV SCH (19:58)
[2023-12-11] MEDS ORDERED: cefTRIAXone 2 GM in Sodium Chloride 0.9% 50 ML IV SCH (20:00)
[2023-12-11] MEDS: Lactobacillus Rhamnosus GG (Probiotic) Cap PO SCH (20:17)
[2023-12-12 05:36] LABS: HEMATOCRIT 37.2 % (38.4-49.7); HEMOGLOBIN 12.4 g/dL (12.9-16.9); MEAN CORPUSCULAR HEMOGLOBIN 29.2 pg (31.6-35.5); MEAN CORPUSCULAR HGB CONC 33.3 g/dL (31.6-35.5); MEAN CORPUSCULAR VOLUME 87.5 fL (81.4-99.0); RED BLOOD CELL COUNT 4.25 M/uL (4.14-5.76); WHITE BLOOD CELL COUNT,WBC 20.6 K/uL (3.2-11.0)
[2023-12-12 05:59] LABS: A/G RATIO 0.7 (1.2-2.2); ALANINE AMINOTRANSFERASE,ALT 20 U/L (12-78); ALBUMIN 2.5 g/dL (3.4-5.0); ALKALINE PHOSPHATASE 82 U/L (46-116); ASPARTATE AMNIOTRANSFERASE,AST 20 U/L (15-37); BILIRUBIN TOTAL 0.5 mg/dL (0.2-1.0); BLOOD UREA NITROGEN,BUN 21 mg/dL (7-18); CARBON DIOXIDE,CO2 28 mmol/L (21-32); CHLORIDE,CL 105 mmol/L (100-108); CREATININE 1.1 mg/dL (0.8-1.3); EST CRCL DRUG DOSING (CG) 52.43 mL/min; ESTIMATED GFR 67 mL/min (>60); GLUCOSE RANDOM 148 mg/dL (74-106); MAGNESIUM 2.1 mg/dL (1.8-2.4); PROTEIN TOTAL,TP 6.2 g/dL (6.4-8.2); SODIUM,NA 141 mmol/L (140-148)
[2023-12-12] MEDS: Pantoprazole 40 MG Tab.CR PO SCH (08:41)
[2023-12-12] MEDS: Rosuvastatin 10 MG Tab PO SCH (08:41)
[2023-12-12] MEDS: Empagliflozin 25 MG Tab PO SCH (08:42)
[2023-12-12] MEDS: Aspirin 81 MG Tab.EC PO SCH (08:42)
[2023-12-12] MEDS: Potassium Chloride 20 MEQ Tab.ER PO ONE ×2 (08:44→17:33)
[2023-12-12] MEDS ORDERED: DAPAGLIFLOZIN PROPANEDIOL 10 MG PO SCH (09:00)
[2023-12-12] MEDS ORDERED: Rosuvastatin 5 MG Tab PO SCH (09:00)
[2023-12-12] MEDS: Benzocaine/Cetylpyridinium/Menthol Lozenge MUCMEM PRN (12:41)
[2023-12-12] MEDS: Furosemide 20 MG Tab PO SCH (13:24)
[2023-12-12] MEDS: Mexiletine 150 MG Cap PO SCH (16:27)
[2023-12-12] MEDS: Formoterol/Mometasone 200-5 MCG 8.8 GM Inhaler IH SCH (22:04)
[2023-12-12] MEDS: metroNIDAZOLE/Normal Saline 500 MG in Premix Bag 1 BAG IV ONE (22:07)
[2023-12-13 05:55] LABS: HEMOGLOBIN 12.2 g/dL (12.9-16.9); MEAN CORPUSCULAR HEMOGLOBIN 29.4 pg (31.6-35.5); MEAN CORPUSCULAR HGB CONC 33.9 g/dL (31.6-35.5); MEAN CORPUSCULAR VOLUME 86.7 fL (81.4-99.0); RED BLOOD CELL COUNT 4.15 M/uL (4.14-5.76); WHITE BLOOD CELL COUNT,WBC 18.5 K/uL (3.2-11.0)
[2023-12-13 06:16] LABS: ANION GAP 12.4 mmol/L (5.0-14.0); CALCIUM 9.1 mg/dL (8.5-10.1); CREATININE 1.4 mg/dL (0.8-1.3); EST CRCL DRUG DOSING (CG) 41.28 mL/min
[2023-12-13] MEDS: metroNIDAZOLE/Normal Saline 500 MG in Premix Bag 1 BAG IV ONE (08:00)
[2023-12-13] MEDS ORDERED: fentaNYL 250 MCG/5 ML SDV ONE (09:16)
[2023-12-13] MEDS ORDERED: Neostigmine Methylsulfate 10 MG/10 ML MDV ONE (09:17)
[2023-12-13] MEDS ORDERED: Rocuronium 50 MG/5 ML Vial ONE (09:17)
[2023-12-13] MEDS ORDERED: Propofol 200 MG/20 ML SDV ONE (09:17)
[2023-12-13] MEDS ORDERED: Ondansetron 4 MG/2 ML SDV ONE (09:17)
[2023-12-13] MEDS ORDERED: Dexamethasone 4 MG/ML SDV ONE (09:17)
[2023-12-13] MEDS ORDERED: Glycopyrrolate 0.2 MG/ML 5 ML MDV ONE (09:17)
[2023-12-13] MEDS: Bupivacaine 0.25% 10 ML SDV INJECT ONE ×2 (09:50→10:35)
[2023-12-13] MEDS ORDERED: Sodium Chloride 0.9% 10 ML ONE (10:07)
[2023-12-13] MEDS ORDERED: ceFAZolin 1 GM Vial ONE (10:07)
[2023-12-13] MEDS: oxyCODONE 5 MG Tab PO PRN (14:36)
[2023-12-13] MEDS: metroNIDAZOLE/Normal Saline 500 MG in Premix Bag 1 BAG IV SCH (16:34)
[2023-12-14] MEDS: Melatonin 3 MG Tab PO PRN (01:45)
[2023-12-14 04:50] LABS: HEMATOCRIT 35.4 % (38.4-49.7); HEMOGLOBIN 11.5 g/dL (12.9-16.9); MEAN CORPUSCULAR HEMOGLOBIN 28.5 pg (31.6-35.5); MEAN CORPUSCULAR HGB CONC 32.5 g/dL (31.6-35.5); MEAN CORPUSCULAR VOLUME 87.6 fL (81.4-99.0); RED BLOOD CELL COUNT 4.04 M/uL (4.14-5.76); WHITE BLOOD CELL COUNT,WBC 16.6 K/uL (3.2-11.0)
[2023-12-14 05:16] LABS: A/G RATIO 0.8 (1.2-2.2); ALANINE AMINOTRANSFERASE,ALT 55 U/L (12-78); ALBUMIN 2.6 g/dL (3.4-5.0); ALKALINE PHOSPHATASE 81 U/L (46-116); ANION GAP 7.6 mmol/L (5.0-14.0); ASPARTATE AMNIOTRANSFERASE,AST 74 U/L (15-37); BILIRUBIN TOTAL 0.3 mg/dL (0.2-1.0); BLOOD UREA NITROGEN,BUN 29 mg/dL (7-18); CALCIUM 9.1 mg/dL (8.5-10.1); CARBON DIOXIDE,CO2 29 mmol/L (21-32); CHLORIDE,CL 104 mmol/L (100-108); CREATININE 1.5 mg/dL (0.8-1.3); EST CRCL DRUG DOSING (CG) 38.53 mL/min; ESTIMATED GFR 46 mL/min (>60); GLUCOSE RANDOM 119 mg/dL (74-106); POTASSIUM,K 5.1 mmol/L (3.6-5.2); SODIUM,NA 141 mmol/L (140-148)
[2023-12-14] MEDS: Apixaban 5 MG Tab PO SCH (12:59)
[2023-12-14 13:54] VITALS: BP 118/65; PULSE 74
== END 2023-12-14 14:26 | disposition home or self-care (01) | DRG 417 ==
LOC: JP.ED 03:16 → JP.MS 10:42
PROVIDERS: ADMIT Internal Medicine; ATTEND Internal Medicine
PROC: 0FT44ZZ Resection of Gallbladder, Percutaneous Endoscopic Approach (ICD-10-PCS; principal; 2023-12-13 07:30)
DX: K81.9 Cholecystitis, unspecified (principal); I11.0 Hypertensive heart disease with heart failure; I50.9 Heart failure, unspecified; K80.00 Calculus of gallbladder with acute cholecystitis without obstruction; J18.9 Pneumonia, unspecified organism; I13.0 Hypertensive heart and chronic kidney disease with heart failure and stage 1 through stage 4 chronic kidney disease, or unspecified chronic kidney disease; J44.9 Chronic obstructive pulmonary disease, unspecified; J44.0 Chronic obstructive pulmonary disease with (acute) lower respiratory infection; L03.115 Cellulitis of right lower limb; I50.22 Chronic systolic (congestive) heart failure; N17.9 Acute kidney failure, unspecified; J44.1 Chronic obstructive pulmonary disease with (acute) exacerbation; I25.10 Atherosclerotic heart disease of native coronary artery without angina pectoris; I48.91 Unspecified atrial fibrillation; H54.7 Unspecified visual loss; E78.00 Pure hypercholesterolemia, unspecified; K52.9 Noninfective gastroenteritis and colitis, unspecified; I27.20 Pulmonary hypertension, unspecified; N18.31 Chronic kidney disease, stage 3a; J43.9 Emphysema, unspecified; E87.6 Hypokalemia; N28.9 Disorder of kidney and ureter, unspecified; Z88.5 Allergy status to narcotic agent; Z88.8 Allergy status to other drugs, medicaments and biological substances; Z79.82 Long term (current) use of aspirin; Z79.01 Long term (current) use of anticoagulants; Z79.51 Long term (current) use of inhaled steroids; Z79.899 Other long term (current) drug therapy; I25.2 Old myocardial infarction; Z87.442 Personal history of urinary calculi; Z86.73 Personal history of transient ischemic attack (TIA), and cerebral infarction without residual deficits; Z87.81 Personal history of (healed) traumatic fracture; Z86.16 Personal history of COVID-19; Z98.890 Other specified postprocedural states; Z87.891 Personal history of nicotine dependence; Z95.1 Presence of aortocoronary bypass graft
CPT/HCPCS: 00790-QZ; 36415; 74177; 76705; 76705-26; 80048; 80053; 81001; 83605; 83690; 83735; 84132; 84484; 85025; 85027; 87040; 88304; 93005; 93010; 94640; 96361; 96365; 96375; 96376; 99222; 99232; 99238; 99285; 99285-25; A9270-GY; J0690; J0696; J1100; J1596; J1836; J2405; J2704; J2710; J2919; J3010; J3490; J7040; J7620; Q9967

== ENCOUNTER 2023-12-24 12:06 | Emergency (ER) | payer MEDICARE, BC ==
[2023-12-24 12:42] LABS: BASOPHILS ABSOLUTE AUTO 0.03 K/uL (0.00-0.10); BASOPHILS PERCENT AUTO 0.2 % (0.1-1.3); EOSINOPHILS ABSOLUTE AUTO 0.04 K/uL (0.00-0.40); EOSINOPHILS PERCENT AUTO 0.3 % (0.0-5.4); HEMATOCRIT 39.4 % (38.4-49.7); HEMOGLOBIN 12.9 g/dL (12.9-16.9); IMMATURE GRAN ABSOLUTE AUTO 0.07 K/uL (0.00-0.23); IMMATURE GRAN PERCENT AUTO 0.6 % (0.0-0.7); LYMPHOCYTES ABSOLUTE AUTO 0.52 K/uL (0.8-3.3); LYMPHOCYTES PERCENT AUTO 4.3 % (11.4-47.7); MEAN CORPUSCULAR HEMOGLOBIN 28.9 pg (31.6-35.5); MEAN CORPUSCULAR HGB CONC 32.7 g/dL (31.6-35.5); MEAN CORPUSCULAR VOLUME 88.1 fL (81.4-99.0); MONOCYTES ABSOLUTE AUTO 0.92 K/uL (0.20-0.90); MONOCYTES PERCENT AUTO 7.6 % (3.3-12.6); NEUTROPHILS ABSOLUTE AUTO 10.52 K/uL (1.0-7.6); PLATELET COUNT,PLT 240 K/uL (130-375); RED BLOOD CELL COUNT 4.47 M/uL (4.14-5.76); WHITE BLOOD CELL COUNT,WBC 12.1 K/uL (3.2-11.0)
[2023-12-24 12:47] LABS: APPEARANCE,URINE CLEAR (CLEAR); BILIRUBIN,URINE NEGATIVE (NEGATIVE); COLOR,URINE YELLOW (YELLOW); GLUCOSE,URINE 500 mg/dL (NEGATIVE); KETONES,URINE NEGATIVE (NEGATIVE); LEUKOCYTE ESTERASE,URINE NEGATIVE (NEGATIVE); NITRITE,URINE NEGATIVE (NEGATIVE); OCCULT BLOOD,URINE NEGATIVE (NEGATIVE); PROTEIN,URINE NEGATIVE (NEGATIVE); UROBILINOGEN,URINE 0.2 EU/dL (0.2-1.0)
[2023-12-24 12:58] LABS: AMORPHOUS SEDIMENT,URINE FEW; BACTERIA,URINE NOT SEEN; EPITHELIAL CELLS,URINE FEW; MUCUS,URINE NOT SEEN; RBC,URINE 0-5 (0-5); WBC,URINE 0-5 (0-5)
[2023-12-24 13:10] LABS: A/G RATIO 0.8 (1.2-2.2); ALANINE AMINOTRANSFERASE,ALT 39 U/L (12-78); ALKALINE PHOSPHATASE 104 U/L (46-116); ASPARTATE AMNIOTRANSFERASE,AST 38 U/L (15-37); BILIRUBIN TOTAL 0.7 mg/dL (0.2-1.0); BLOOD UREA NITROGEN,BUN 13 mg/dL (7-18); CARBON DIOXIDE,CO2 30 mmol/L (21-32); CHLORIDE,CL 100 mmol/L (100-108); CREATININE 1.5 mg/dL (0.8-1.3); ESTIMATED GFR 46 mL/min (>60); GLUCOSE RANDOM 108 mg/dL (74-106); PROTEIN TOTAL,TP 6.6 g/dL (6.4-8.2); SODIUM,NA 140 mmol/L (140-148)
[2023-12-24 13:13] LABS: ANION GAP 12.9 mmol/L (5.0-14.0); POTASSIUM,K 2.9 mmol/L (3.6-5.2)
[2023-12-24] MEDS: Sodium Chloride 0.9% 60 ML IV SCH (13:24)
[2023-12-24] MEDS: Iopamidol 612 MG/ML 100 ML Bottle IV ONE (13:24)
[2023-12-24] MEDS: NS with KCl 40mEq 500 ML IV SCH (13:49)
[2023-12-24 17:20] VITALS: BP 154/72; PULSE 69
[2023-12-24] MEDS: Mineral Oil 133 ML BOTTLE RECTAL ONE (17:21)
== END 2023-12-24 17:22 | disposition home or self-care (01) ==
LOC: JP.ED 12:06
DX: K59.00 Constipation, unspecified (principal); S90.31XA Contusion of right foot, initial encounter; M19.071 Primary osteoarthritis, right ankle and foot; I48.91 Unspecified atrial fibrillation; I25.10 Atherosclerotic heart disease of native coronary artery without angina pectoris; I13.0 Hypertensive heart and chronic kidney disease with heart failure and stage 1 through stage 4 chronic kidney disease, or unspecified chronic kidney disease; I50.9 Heart failure, unspecified; N18.9 Chronic kidney disease, unspecified; E78.00 Pure hypercholesterolemia, unspecified; I25.2 Old myocardial infarction; J44.9 Chronic obstructive pulmonary disease, unspecified; Z86.73 Personal history of transient ischemic attack (TIA), and cerebral infarction without residual deficits; Z86.16 Personal history of COVID-19; Z95.5 Presence of coronary angioplasty implant and graft; Z79.82 Long term (current) use of aspirin; Z79.899 Other long term (current) drug therapy; Z88.8 Allergy status to other drugs, medicaments and biological substances; Z88.5 Allergy status to narcotic agent; W20.8XXA Other cause of strike by thrown, projected or falling object, initial encounter
CPT/HCPCS: 36415; 73700; 74177; 76377; 80053; 81001; 83605; 83690; 85025; 96365; 96366; 99284; A9270; J3480; J3490; Q9967

== ENCOUNTER 2024-02-05 09:55 | Inpatient (IN) | payer MEDICARE, BC ==
[2024-02-05 11:04] LABS: BASOPHILS ABSOLUTE AUTO 0.03 K/uL (0.00-0.10); BASOPHILS PERCENT AUTO 0.3 % (0.1-1.3); EOSINOPHILS ABSOLUTE AUTO 0.07 K/uL (0.00-0.40); EOSINOPHILS PERCENT AUTO 0.6 % (0.0-5.4); HEMATOCRIT 40.2 % (38.4-49.7); HEMOGLOBIN 12.9 g/dL (12.9-16.9); IMMATURE GRAN ABSOLUTE AUTO 0.04 K/uL (0.00-0.23); IMMATURE GRAN PERCENT AUTO 0.4 % (0.0-0.7); LYMPHOCYTES ABSOLUTE AUTO 0.52 K/uL (0.8-3.3); LYMPHOCYTES PERCENT AUTO 4.7 % (11.4-47.7); MEAN CORPUSCULAR HEMOGLOBIN 28.2 pg (31.6-35.5); MEAN CORPUSCULAR HGB CONC 32.1 g/dL (31.6-35.5); MONOCYTES ABSOLUTE AUTO 1.08 K/uL (0.20-0.90); MONOCYTES PERCENT AUTO 9.8 % (3.3-12.6); NEUTROPHILS ABSOLUTE AUTO 9.32 K/uL (1.0-7.6); NEUTROPHILS PERCENT AUTO 84.2 % (40.0-78.1); PLATELET COUNT,PLT 132 K/uL (130-375); RED BLOOD CELL COUNT 4.57 M/uL (4.14-5.76); WHITE BLOOD CELL COUNT,WBC 11.1 K/uL (3.2-11.0)
[2024-02-05] MEDS: Albuterol/Ipratropium 3.0-0.5 MG/3 ML Neb Soln NEB ONE (11:07)
[2024-02-05] MEDS: methylPREDNISolone Sodium Succinate 125 MG/2 ML SDV IVPUSH ONE (11:07)
[2024-02-05 11:20] LABS: ANION GAP 7.4 mmol/L (5.0-14.0); C-REACTIVE PROTEIN 0.85 mg/dL (<0.50); CALCIUM 8.7 mg/dL (8.5-10.1); CREATININE 1.7 mg/dL (0.8-1.3); EST CRCL DRUG DOSING (CG) 31.68 mL/min; POTASSIUM,K 4.3 mmol/L (3.6-5.2)
[2024-02-05 11:28] LABS: LACTIC ACID 1.1 mmol/L (0.4-2.0)
[2024-02-05 11:44] LABS: INFLUENZA A NAA NEGATIVE (NEGATIVE); INFLUENZA B NAA NEGATIVE (NEGATIVE); RESPIRATORY SYNCYTIAL VIR NAA NEGATIVE (NEGATIVE)
[2024-02-05 11:47] LABS: CORONAVIRUS COVID-19 NAA POSITIVE (NEGATIVE)
[2024-02-05] MEDS ORDERED: guaiFENesin/Dextromethorphan 100-10 MG/5 ML Soln 10 ML Cup PO PRN (15:27)
[2024-02-05] MEDS ORDERED: Sennosides/Docusate Sodium 50-8.6 MG Tab PO PRN (15:27)
[2024-02-05] MEDS ORDERED: Magnesium Hydroxide 400 MG/5 ML Susp 30 ML Cup PO PRN (15:27)
[2024-02-05] MEDS ORDERED: Acetaminophen 325 MG Tab PO PRN (15:27)
[2024-02-05] MEDS ORDERED: Albuterol 6.7 GM Inhaler INH PRN (15:27)
[2024-02-05] MEDS ORDERED: Ondansetron 4 MG Tab.DIS PO PRN (15:27)
[2024-02-05] MEDS ORDERED: Benzonatate 100 MG Cap PO PRN (15:27)
[2024-02-05] MEDS ORDERED: Ondansetron 4 MG/2 ML SDV IV PRN (15:27)
[2024-02-05] MEDS: REMDESIVIR 200 MG in Sodium Chloride 0.9% 250 ML IV ONE (16:19)
[2024-02-05] MEDS: Apixaban 5 MG Tab PO SCH (21:38)
[2024-02-05] MEDS: Mexiletine 150 MG Cap PO SCH (21:38)
[2024-02-05] MEDS: Formoterol/Mometasone 200-5 MCG 8.8 GM Inhaler INH SCH (21:39)
[2024-02-06 05:54] LABS: HEMATOCRIT 35.6 % (38.4-49.7); HEMOGLOBIN 11.6 g/dL (12.9-16.9); MEAN CORPUSCULAR HEMOGLOBIN 27.9 pg (31.6-35.5); MEAN CORPUSCULAR HGB CONC 32.6 g/dL (31.6-35.5); MEAN CORPUSCULAR VOLUME 85.6 fL (81.4-99.0); RED BLOOD CELL COUNT 4.16 M/uL (4.14-5.76); WHITE BLOOD CELL COUNT,WBC 10.2 K/uL (3.2-11.0)
[2024-02-06 06:17] LABS: ALANINE AMINOTRANSFERASE,ALT 19 U/L (12-78); ALKALINE PHOSPHATASE 107 U/L (46-116); ANION GAP 6.2 mmol/L (5.0-14.0); ASPARTATE AMNIOTRANSFERASE,AST 23 U/L (15-37); BILIRUBIN TOTAL 0.6 mg/dL (0.2-1.0); BLOOD UREA NITROGEN,BUN 24 mg/dL (7-18); CALCIUM 8.8 mg/dL (8.5-10.1); CARBON DIOXIDE,CO2 29 mmol/L (21-32); CHLORIDE,CL 105 mmol/L (100-108); CREATININE 1.4 mg/dL (0.8-1.3); EST CRCL DRUG DOSING (CG) 39.99 mL/min; ESTIMATED GFR 50 mL/min (>60); GLUCOSE RANDOM 125 mg/dL (74-106); POTASSIUM,K 4.1 mmol/L (3.6-5.2); PROTEIN TOTAL,TP 6.1 g/dL (6.4-8.2); SODIUM,NA 140 mmol/L (140-148)
[2024-02-06] MEDS: Tiotropium Bromide 4 GM Inhalation Spray (2.5mcg/1 dose; 10 doses) INH SCH (07:26)
[2024-02-06] MEDS: Dexamethasone 2 MG Tab PO SCH (08:28)
[2024-02-06] MEDS: Diltiazem 120 MG Cap.CD PO SCH (08:28)
[2024-02-06] MEDS: Furosemide 40 MG Tab PO SCH (08:29)
[2024-02-06] MEDS: Multivitamins with Iron/Calcium/Folic Acid/Minerals Tab PO SCH (08:29)
[2024-02-06] MEDS: Pantoprazole 40 MG Tab.CR PO SCH (08:29)
[2024-02-06] MEDS: Potassium Chloride 20 MEQ Tab.ER PO SCH (08:29)
[2024-02-06] MEDS: Empagliflozin 25 MG Tab PO SCH (08:29)
[2024-02-06] MEDS: Aspirin 81 MG Tab.EC PO SCH (08:29)
[2024-02-06] MEDS: Rosuvastatin 10 MG Tab PO SCH (08:29)
[2024-02-06] MEDS: Furosemide 20 MG Tab PO SCH (14:17)
[2024-02-06] MEDS: REMDESIVIR 100 MG in Sodium Chloride 0.9% 100 ML IV SCH (16:28)
[2024-02-06] MEDS: Benzocaine/Cetylpyridinium/Menthol Lozenge MUCMEM PRN (21:23)
[2024-02-07 05:17] LABS: ALANINE AMINOTRANSFERASE,ALT 22 U/L (12-78); ALBUMIN 3.1 g/dL (3.4-5.0); ALKALINE PHOSPHATASE 101 U/L (46-116); ASPARTATE AMNIOTRANSFERASE,AST 21 U/L (15-37); BILIRUBIN TOTAL 0.4 mg/dL (0.2-1.0); BLOOD UREA NITROGEN,BUN 38 mg/dL (7-18); C-REACTIVE PROTEIN 1.89 mg/dL (<0.50); CALCIUM 8.8 mg/dL (8.5-10.1); CARBON DIOXIDE,CO2 28 mmol/L (21-32); CHLORIDE,CL 103 mmol/L (100-108); CREATININE 1.5 mg/dL (0.8-1.3); EST CRCL DRUG DOSING (CG) 37.32 mL/min; ESTIMATED GFR 46 mL/min (>60); GLUCOSE RANDOM 123 mg/dL (74-106); POTASSIUM,K 4.8 mmol/L (3.6-5.2); PROTEIN TOTAL,TP 6.2 g/dL (6.4-8.2); SODIUM,NA 138 mmol/L (140-148)
[2024-02-07 05:20] LABS: ANION GAP 11.8 mmol/L (5.0-14.0)
[2024-02-07 10:19] VITALS: BP 130/74; PULSE 94
== END 2024-02-07 11:00 | disposition home or self-care (01) | DRG 177 ==
LOC: JP.ED 09:55 → JP.MS 14:44
PROVIDERS: ADMIT Internal Medicine; ATTEND Internal Medicine
PROC: 8E0ZXY6 Isolation (ICD-10-PCS; principal; 2024-02-05)
PROC: 3E0333Z Introduction of Anti-inflammatory into Peripheral Vein, Percutaneous Approach (ICD-10-PCS; 2024-02-05)
PROC: XW033E5 Introduction of Remdesivir Anti-infective into Peripheral Vein, Percutaneous Approach, New Technology Group 5 (ICD-10-PCS; 2024-02-05)
DX: U07.1 COVID-19 (principal); J12.82 Pneumonia due to coronavirus disease 2019; J96.01 Acute respiratory failure with hypoxia; I50.22 Chronic systolic (congestive) heart failure; J44.0 Chronic obstructive pulmonary disease with (acute) lower respiratory infection; I42.9 Cardiomyopathy, unspecified; I13.0 Hypertensive heart and chronic kidney disease with heart failure and stage 1 through stage 4 chronic kidney disease, or unspecified chronic kidney disease; I48.19 Other persistent atrial fibrillation; H54.7 Unspecified visual loss; I25.10 Atherosclerotic heart disease of native coronary artery without angina pectoris; E78.00 Pure hypercholesterolemia, unspecified; I27.20 Pulmonary hypertension, unspecified; K52.9 Noninfective gastroenteritis and colitis, unspecified; N18.9 Chronic kidney disease, unspecified; N18.31 Chronic kidney disease, stage 3a; Z88.5 Allergy status to narcotic agent; Z88.8 Allergy status to other drugs, medicaments and biological substances; Z79.82 Long term (current) use of aspirin; Z79.01 Long term (current) use of anticoagulants; Z79.51 Long term (current) use of inhaled steroids; Z79.899 Other long term (current) drug therapy; I25.2 Old myocardial infarction; Z86.73 Personal history of transient ischemic attack (TIA), and cerebral infarction without residual deficits; Z86.16 Personal history of COVID-19; Z90.49 Acquired absence of other specified parts of digestive tract
CPT/HCPCS: 0241U; 36415; 71046; 80048; 80053; 83605; 83880; 84145; 84484; 85025; 85027; 86140; 87040; 93005; 94640; 96374; 99222; 99232; 99238; 99285-25; A9270-GY; J2919; J7050; J7620; J8540